=== PATIENT | male | born 1925 | race Caucasian/White ===

== ENCOUNTER 2016-12-13 07:24 | Observation (INO) | payer MEDICARE ==
[~2016-12-13] VITALS: Ht 170.2 cm; Wt 55.8 kg
[~2016-12-13 07:24] MED LIST: ACET1CAP18 PO; DILT120T PO; DOCU100C PO; DULC10SU3 RECTAL; FINA5TAB2 PO; FLEE10EN RECTAL; FLEEENE3 RECTAL; FURO40TA PO; HALO5P IM; LOPE1LIQ3 PO; LOPE2CAP PO; MAALSUS18 PO; MILKSUS PO; POTA75TA PO; QUET1TAB7 PO; SENN8.6T5 PO; TAMS0.4C4 PO; TRAZ50TA12 PO
[2016-12-13] MEDS ORDERED: METOPROLOL TARTRATE 25 MG TAB PO PRN (08:15)
[2016-12-13] MEDS ORDERED: INSULIN HUMAN REGULAR 1,000 UNITS/10 ML VIAL SQ PRN (08:15)
[2016-12-13] MEDS ORDERED: LACTATED RINGER'S 1000 ML IV SCH (08:15)
[2016-12-13] MEDS ORDERED: AMPICILLIN 1 GM/NS 100 ML IV SCH ×2 (08:15)
[2016-12-13] MEDS ORDERED: SODIUM CHLORID 0.9% 500 ML IV SCH (08:15)
[2016-12-13] MEDS ORDERED: GENTAMICIN INJ 160 MG in SODIUM CHLORIDE 0.9% INJ 100 ML IV SCH (08:15)
[2016-12-13 08:24] VITALS: BP 121/83; PULSE 87; RESP 20; TEMP 97.4; O2SAT 87
[2016-12-13] MEDS ORDERED: ACETAMINOPHEN 1000 MG/100 ML VIAL IV ONE (09:47)
[2016-12-13] MEDS ORDERED: DO NOT ADM ANY ANTICOAGULANT DRUGS XX PRN (10:53)
[2016-12-13] MEDS ORDERED: BELLADONNA ALKALOIDS/OPIUM 60 MG SUPP RECTAL PRN (11:00)
[2016-12-13] MEDS ORDERED: ACETAMINOPHEN 325 MG TAB PO PRN (11:00)
[2016-12-13] MEDS ORDERED: ALUMINUM/MAGNESIUM/SIMETH 30 ML CUP PO PRN (11:00)
[2016-12-13] MEDS ORDERED: HALOPERIDOL LACTATE 5 MG/ML AMP IM PRN (11:00)
[2016-12-13] MEDS: SODIUM CHLOR 0.45% 1000 ML INJ 1,000 ML IV SCH ×2 (11:00→21:33)
--- NOTE | 2016-12-13 11:15 | PD.OP ---
Operative Report Date of Surgery: Dec 13, 2016 Preoperative Diagnosis: BPH with obstruction: AUR Postoperative Diagnosis: same Procedure: Cystoscopy with transurethral resection of the prostate Anesthesia: Gen. LMA Surgeon: Romero Moncada Planning Feeder(s): None Operation and Findings: 89-year-old male with history of urinary retention secondary to BPH. Patient has been unable to void for the last few months and has had a Claros catheter in place. Cystoscopy performed in the office demonstrating large coapting lobes causing obstruction. Given the patient's age, it was noted that even after TURP he may have some difficulty with urination and may need to perform clean intermittent catheterization. This was discussed and the family and they're willing to proceed. Patient is brought to the operative and identified by myself as Blane Stacy. His placement dorsal lithotomy position, prepped and draped in usual sterile fashion, received preprocedure antibiotics, and general LMA anesthesia was administered. 24 sheath resectoscope was then inserted into the bladder. Jon cystoscopy once in the bladder did not show any abnormalities other than catheter cystitis. Some trabeculations were identified. A large median lobe was again identified. Using the loop resectoscope, starting at the 6 o'clock position that TUR of the prostate was then performed. The loop was then used in the counterclockwise manner starting at the 6 o'clock position in the left side was then resected. This was again repeated on the right side going from the 6 o'clock position to the 12 o'clock position in a clockwise direction. Care was taken to identify the veromontana. Once the prosthetic lobes were resected as well as the median lobe, the rollerball was then used to provide hemostasis. Once that was completed the chips were evacuated with the iliac evacuator. Hemostasis was again checked for and was present. 22 Azeri three-way Claros catheter was inserted over a catheter guide and the patient was started on CBI. He was awoken and transferred recovery room in stable condition. Romero Moncada DO Dec 13, 2016 11:15
--- NOTE | 2016-12-13 11:21 | EKG ---
Date Performed: 12/13/2016 Time Performed: 08:10:16 PTAGE: 89 years EKG: ATRIAL FIBRILLATION INDETERMINATE AXIS INCOMPLETE RIGHT BUNDLE BRANCH BLOCK MINIMAL VOLTAGE CRITERIA FOR LVH, CONSIDER NORMAL VARIANT MINIMAL ST DEPRESSION ABNORMAL RHYTHM ECG PREVIOUS TRACING : 09/07/2013 12.22 DOCTOR: Zac Castaneda Interpretating Date/Time 12/13/2016 11:19:19
[2016-12-13] MEDS ORDERED: PHENYLEPH/NS 1000 MCG/10 ML SYR IV ONE (12:00)
[2016-12-13] MEDS ORDERED: PILL SPLITTER OTHER PRN (12:00)
[2016-12-13] MEDS ORDERED: ONDANSETRON HCL 4 MG/2 ML VIAL IV PUSH ONE (12:00)
[2016-12-13] MEDS ORDERED: PROPOFOL 200 MG/20 ML AMP IV ONE (12:00)
[2016-12-13] MEDS ORDERED: NORMOSOL R INJ 1,000 ML IV ONE (12:00)
[2016-12-13] MEDS ORDERED: DOCUSATE SODIUM 50 MG/SENNA 8.6 MG TAB PO ONE (13:00)
[2016-12-13 13:51] LABS: HEMATOCRIT 39.5 % (39.0-51.0); MEAN CELL VOLUME 86.8 FL (80.0-100.0); MEAN CORPUSCULAR HEMOGLOBIN 28.7 PG (27.0-34.0); MEAN CORPUSCULAR HGB CONC 33.1 % (32.0-36.0); PLATELET COUNT 156 TH/MM3 (150-450); RED BLOOD COUNT 4.55 MIL/MM3 (4.50-5.90); RED CELL DISTRIBUTION WIDTH 14.4 % (11.6-17.2); REVIEW FLAG FINAL; WHITE BLOOD COUNT 4.9 TH/MM3 (4.0-11.0)
[2016-12-13 14:10] LABS: BICARBONATE 29.5 MEQ/L (21.0-32.0); POTASSIUM 3.9 MEQ/L (3.5-5.1)
[2016-12-13] MEDS: DILTIAZEM HCL 60 MG TAB PO SCH (15:10)
[2016-12-13] MEDS: FUROSEMIDE 40 MG TAB PO SCH (18:00)
[2016-12-13] MEDS ORDERED: traZODone HCL 50 MG TAB PO SCH (21:00)
[2016-12-13 21:40] VITALS: BP 104/70; PULSE 72; RESP 12; O2SAT 95
[2016-12-14 03:26] VITALS: BP 92/63; PULSE 63; RESP 12; O2SAT 95
[2016-12-14] MEDS: SODIUM CHLOR 0.45% 1000 ML INJ 1,000 ML IV SCH (06:01)
[2016-12-14 07:00] VITALS: BP 115/58; PULSE 58; RESP 16; TEMP 96.1
[2016-12-14] MEDS: FUROSEMIDE 40 MG TAB PO SCH (08:47)
[2016-12-14] MEDS: DILTIAZEM HCL 60 MG TAB PO SCH (08:49)
[2016-12-14] MEDS ORDERED: DILTIAZEM HCL 60 MG TAB PO SCH (09:00)
[2016-12-14] MEDS ORDERED: QUEtiapine FUMARATE 25 MG TAB PO SCH (09:00)
[2016-12-14] MEDS ORDERED: POTASSIUM CHLORIDE 10 MEQ CONTROLLED RELEASE TAB PO SCH (09:00)
--- NOTE | 2016-12-14 09:05 | HHI.PR ---
Subjective Remarks Pt feels well. No complaints; urine clear Objective Vital Signs Vital Signs Date Time Temp Pulse Resp B/P Pulse Ox O2 Delivery O2 Flow Rate FiO2 12/14/16 03:26 63 12 92/63 95 12/13/16 21:40 72 12 104/70 95 12/13/16 17:55 97.5 88 15 107/65 95 Room Air 12/13/16 17:00 93 15 108/67 94 Room Air 12/13/16 16:00 100 15 115/66 98 Nasal Cannula 3 12/13/16 15:00 109 15 121/63 96 Nasal Cannula 3 12/13/16 14:00 105 15 117/69 95 Nasal Cannula 3 12/13/16 13:15 97.5 106 15 114/65 99 Nasal Cannula 4 12/13/16 13:00 102 12 123/87 97 Nasal Cannula 4 12/13/16 12:30 105 12 145/89 97 Nasal Cannula 4 12/13/16 12:00 109 12 126/79 97 Nasal Cannula 4 12/13/16 11:45 111 12 130/88 99 Nasal Cannula 4 12/13/16 11:30 101 12 121/80 99 Nasal Cannula 4 12/13/16 11:15 84 12 117/89 99 Nasal Cannula 4 12/13/16 11:00 75 12 93/54 99 Nasal Cannula 4 12/13/16 10:53 97.3 81 12 92/58 99 Nasal Cannula 4 I/O 12/13/16 12/13/16 12/13/16 12/14/16 12/14/16 12/14/16 07:00 15:00 23:00 07:00 15:00 23:00 Intake Total 1040 ml 2130 ml 240 ml Output Total 5 ml 850 ml Balance 1035 ml 2130 ml -610 ml Intake Oral 240 ml 600 ml 240 ml IV Total 1530 ml Other 800 ml Output Urine Total 850 ml Estimated Blood Loss 5 ml # Voids 0 # Bowel Movements 0 0 Result Diagram: 12/13/16 1335 12/13/16 1335 Objective Remarks Abd:soft,nt,nd Claros: urine clear Assessment and Plan Assessment and Plan Stable s/p TURP D/C home Romero Moncada DO Dec 14, 2016 09:05
--- NOTE | 2016-12-16 21:55 | MD ---
cc: LARISSA DING ADMISSION DATE: 12/13/2016 DISCHARGE DATE: 12/14/2016 HISTORY Mr. Stacy is a pleasant 89-year-old male with history of urinary retention for the last few months who had an indwelling Claros catheter. He underwent cystoscopy in the office demonstrating large coapting lobes with trabeculations within the bladder. Decision was made to undergo a transurethral resection of the prostate. This was done on 12/13/2016. There no complications. He was kept overnight for observation. He was tolerating his regular diet, ambulating without difficulty. He remained afebrile and his vital signs were stable, and his urine was clear on postoperative day #1. He was then discharged. At the time of discharge he was given instructions concerning diet, exercise and medications. He is scheduled to follow up on Saturday for a void trial in the office. Larissa GOMEZ/KK /9:13 AM /9:54 PM
[2016-12-17] MEDS ORDERED: LORA-373 PO (11:47)
[2016-12-17] MEDS ORDERED: POTA10TA15 PO (11:47)
[2016-12-31] MEDS ORDERED: PLAV75TA29 PO (11:23)
[2016-12-31] MEDS ORDERED: ALBU.5I NEB (11:23)
[2016-12-31] MEDS ORDERED: MUCI600T PO (11:23)
== END 2016-12-14 11:20 | disposition home or self-care (01) ==
LOC: HSDC 07:24 → HSDI 11:08 → N07B 18:09
PROVIDERS: ADMIT Urology; ATTEND Urology
DX: N40.1 Benign prostatic hyperplasia with lower urinary tract symptoms (principal); N40.0 Benign prostatic hyperplasia without lower urinary tract symptoms; R33.8 Other retention of urine; N30.80 Other cystitis without hematuria; R94.31 Abnormal electrocardiogram [ECG] [EKG]
CPT/HCPCS: 00914; 52601; 80048; 85027; 88305; 93005; 94150; G0378; J0131; J0290; J0690; J1580; J2370; J2405

== ENCOUNTER 2017-01-06 21:53 | Emergency (ER) | payer MEDICARE ==
[~2017-01-06] VITALS: Ht 165.1 cm; Wt 55.0 kg
[~2017-01-06 21:53] MED LIST changes: +ALBU.5I NEB; -DULC10SU3 RECTAL; -HALO5P IM; +LORA-373 PO; +MUCI600T PO; +PLAV75TA29 PO; +POTA10TA15 PO; -POTA75TA PO
[2017-01-06 22:00] VITALS: BP 143/77; PULSE 96; RESP 16; TEMP 98.2; O2SAT 96
[2017-01-06] MEDS ORDERED: TETANUS/DIPHTHERIA TOXOID ADULT 0.5 ML VIAL IM ONE (22:00)
--- NOTE | 2017-01-06 22:04 | PD ---
HPI Chief Complaint: fall Time Seen by Provider: 22:00 Travel History International Travel<30 days: No Contact w/Intl Traveler<30days: No Traveled to known affect area: No History of Present Illness HPI This is an 89-year-old male with history of vascular dementia, atrial fibrillation rate controlled per his paperwork, BPH, CHF presents after an unwitnessed fall from his custodial. According to EMS the patient was seen by the SIGHTSEEING GUIDE at the custodial on the ground. He appeared to be at his baseline mental status but he appears to have an abrasion to the back of his head because of the unwitnessed fall he was encouraged to come here for further evaluation. At this time he is complaining of pain "all over" and is unable to localize any further. He is coughing quite a bit during examination. History is limited by dementia. He appears to be on Plavix according to his paperwork. PFSH Past Medical History Arthritis: No Atrial Fibrillation: Yes Anxiety: Yes Heart Rhythm Problems: Yes Cancer: No Cardiovascular Problems: Yes (valve dysfunction- [facility] TREATING MEDICALLY) High Cholesterol: Yes Chest Pain: No Congestive Heart Failure: Yes Coronary Artery Disease: Yes Dementia: Yes Diminished Hearing: Yes Endocrine: No Gastrointestinal Disorders: No Genitourinary: Yes (BPH) Hypertension: Yes Immune Disorder: No Kidney Stones: No Musculoskeletal: Yes Neurologic: No Psychiatric: No Reproductive: No Respiratory: Yes Immunizations Current: Yes Renal Failure: No Sleep Apnea: No Past Surgical History Abdominal Surgery: No Cardiac Surgery: No Ear Surgery: No Endocrine Surgery: No Eye Surgery: No Genitourinary Surgery: No Gynecologic Surgery: No Neurologic Surgery: No Oral Surgery: No Thoracic Surgery: No Other Surgery: Yes Social History Alcohol Use: No Tobacco Use: No Allergies-Medications (Allergen,Severity, Reaction): Coded Allergies: No Known Allergies (Unverified , 01/06/17) Reported Meds & Prescriptions Reported Meds & Active Scripts Active Macrobid (Nitrofurantoin Monoh/Nitrofur Macro) 100 Mg Cap 100 Mg PO BID 7 Days Reported Albuterol Neb (Albuterol Sulfate) 2.5 Mg/0.5 Ml Neb 2.5 Mg NEB Q6HR NEB Note: The Albuterol Sulfate Inhalation Solution is concentrated and must be diluted. Read complete instructions carefully before using. Mucinex ER 12 HR (Guaifenesin) 600 Mg Trista 600 Mg PO BID Plavix (Clopidogrel Bisulfate) 75 Mg Tab 75 Mg PO DAILY Lorazepam 0.5 Mg Tab 0.5 Mg PO Q8H PRN Potassium Chloride Microencaps 10 Meq Tab 10 Meq PO DAILY Trazodone (Trazodone HCl) 50 Mg Tab 25 Mg PO HS Tamsulosin (Tamsulosin HCl) 0.4 Mg Cap 0.4 Mg PO HS Senna (Sennosides) 8.6 Mg Tab 8.6 Mg PO HS Quetiapine (Quetiapine Fumarate) 25 Mg Tab 25 Mg PO HS Quetiapine (Quetiapine Fumarate) 25 Mg Tab 12.5 Mg PO DAILY Furosemide 40 Mg Tab 40 Mg PO BID Finasteride 5 Mg Tab 5 Mg PO DAILY Do not crush. Docusate Sodium 100 Mg Cap 100 Mg PO BID Diltiazem (Diltiazem HCl) 120 Mg Tab 120 Mg PO DAILY Tylenol (Acetaminophen) 325 Mg Cap 650 Mg PO QID PRN Loperamide Liq (Loperamide HCl) 1 Mg/5 Ml Liq 4 Mg PO DIRECTED PRN 2 mg (10 mL) after each loose stool. Not to exceed 16 mg (80 mL) per day. Fleet Enema Rectal (Sodium Phosphates Rectal) 7-19 Gm/118 Ml Enem 118 Ml RECTAL DAILY PRN Fleet Bisacodyl Enema (Bisacodyl) 10 Mg/37 Ml Enem 37 Ml RECTAL DAILY PRN Loperamide (Loperamide HCl) 2 Mg Cap 2 Mg PO DIRECTED PRN One capsule after each loose stool. Not to exceed 8 capsules per day. Milk of Magnesia Liq (Magnesium Hydroxide) 400 Mg/5 Ml Susp 30 Ml PO Q6H PRN Maalox Advanced Maximum Strength Liq (Ijjcqinh-Rftkskucr-Iymtssmblaa Liq) 400- 400-40 Mg/5 Ml Susp 30 Ml PO QID Take between meals or as directed. Shake well. Maximum 60 ml/24 hrs. Review of Systems ROS Limitations: Poor Historian Except as stated in HPI: all other systems reviewed are Neg Physical Exam Exam Limitations: Poor Historian Narrative GENERAL: This is a elderly male who is in no acute distress. He is coughing during the examination. SKIN: Warm and dry. Abrasion/contusion to the occipital scalp. HEAD: Atraumatic. Normocephalic. EYES: Pupils equal and round. No scleral icterus. No injection or drainage. ENT: No nasal bleeding or discharge. Mucous membranes pink and moist. NECK: Trachea midline. No JVD. CARDIOVASCULAR: Regular rate and rhythm. No murmur appreciated. RESPIRATORY: No accessory muscle use. There is some wheezing bilaterally. GASTROINTESTINAL: Abdomen soft, non-tender, nondistended. Hepatic and splenic margins not palpable. MUSCULOSKELETAL: No obvious deformities. The patient seems to have some discomfort with palpation along the back. Initially he seemed to have some discomfort with palpation of the right forearm but then on reevaluation he did not appear to have any pain on examination of the right forearm. He has no obvious range of motion limitation in the shoulders, elbows, wrists, hands, hips , knees, ankles, toes bilaterally. He has no bony tenderness to palpation to the pelvis, hips, thighs, knees, lower legs, ankles or feet. NEUROLOGICAL: Awake and alert. No obvious cranial nerve deficits. Motor grossly within normal limits. Normal speech. Data Data Last Documented VS Vital Signs Date Time Temp Pulse Resp B/P Pulse Ox O2 Delivery O2 Flow Rate FiO2 01/07/17 02:34 96 20 123/83 97 Room Air 01/06/17 23:53 98.1 Orders Chest, Single Ap (01/06/17 21:59) Pelvis, Ap Only (Routine) (01/06/17 21:59) Spine, Lumbar - Ltd (Ap & Lat) (01/06/17 21:59) Spine, Thoracic-Ap/Lat/Sw(3vw) (01/06/17 21:59) Ct Brain W/O Iv Contrast(Rout) (01/06/17 21:59) Ct Cerv Spine W/O Contrast (01/06/17 21:59) Forearm (2vws) (01/06/17 ) Complete Blood Count With Diff (01/06/17 21:59) Basic Metabolic Panel (Bmp) (01/06/17 21:59) Act Partial Throm Time (Ptt) (01/06/17 21:59) Prothrombin Time / Inr (Pt) (01/06/17 21:59) Electrocardiogram (01/06/17 21:59) Ckmb (Isoenzyme) Profile (01/06/17 21:59) Troponin I (01/06/17 21:59) Tetanus/Diphtheria Tox Adult (Tetanus/Di (01/06/17 22:00) Albuterol-Ipratropium Neb (Duoneb Neb) (01/06/17 22:15) Urinalysis - C+S If Indicated (01/06/17 22:01) B-Type Natriuretic Peptide (01/06/17 22:05) Diltiazem (Cardizem) (01/06/17 22:15) Urine Culture (01/06/17 22:10) CKMB (01/06/17 22:10) CKMB% (01/06/17 22:10) Ceftriaxone Inj (Rocephin Inj) (01/07/17 00:15) Labs Laboratory Tests Test 01/06/17 22:10 White Blood Count 11.1 TH/MM3 Red Blood Count 4.35 MIL/MM3 Hemoglobin 12.1 GM/DL Hematocrit 36.8 % Mean Corpuscular Volume 84.6 FL Mean Corpuscular Hemoglobin 27.8 PG Mean Corpuscular Hemoglobin 32.9 % Concent Red Cell Distribution Width 14.6 % Platelet Count 158 TH/MM3 Mean Platelet Volume 8.4 FL Neutrophils (%) (Auto) 87.0 % Lymphocytes (%) (Auto) 5.6 % Monocytes (%) (Auto) 5.5 % Eosinophils (%) (Auto) 1.2 % Basophils (%) (Auto) 0.7 % Neutrophils # (Auto) 9.6 TH/MM3 Lymphocytes # (Auto) 0.6 TH/MM3 Monocytes # (Auto) 0.6 TH/MM3 Eosinophils # (Auto) 0.1 TH/MM3 Basophils # (Auto) 0.1 TH/MM3 CBC Comment DIFF FINAL Differential Comment Prothrombin Time 13.6 SEC Prothromb Time International 1.2 RATIO Ratio Activated Partial 32.2 SEC Thromboplast Time Urine Color YELLOW Urine Turbidity HAZY Urine pH 6.0 Urine Specific [place] 1.023 Urine Protein 30 mg/dL Urine Glucose (UA) NEG mg/dL Urine Ketones NEG mg/dL Urine Occult Blood LARGE Urine Nitrite NEG Urine Bilirubin NEG Urine Urobilinogen 2.0 MG/DL Urine Leukocyte Esterase LARGE Urine RBC /hpf Urine WBC /hpf Urine WBC Clumps MANY Urine Hyaline Casts 3 /lpf Urine Mucus FEW /lpf Microscopic Urinalysis Comment CATH-CULTURE IND Sodium Level 143 MEQ/L Potassium Level 4.1 MEQ/L Chloride Level 106 MEQ/L Carbon Dioxide Level 28.4 MEQ/L Anion Gap 9 MEQ/L Blood Urea Nitrogen 30 MG/DL Creatinine 1.00 MG/DL Estimat Glomerular Filtration 70 ML/MIN Rate Random Glucose 100 MG/DL Calcium Level 8.3 MG/DL Total Creatine Kinase 120 U/L Creatine Kinase MB 3.5 NG/ML Troponin I LESS THAN 0.02 NG/ML B-Type Natriuretic Peptide 259 PG/ML MDM Medical Decision Making Medical Screen Exam Complete: Yes Emergency Medical Condition: Yes Medical Record Reviewed: Yes Differential Diagnosis Mechanical fall with closed head injury, scalp abrasion, intracranial hemorrhage , arrhythmia, electrolyte abnormality, syncope, acute coronary syndrome Narrative Course 89-year-old male with dementia presents after an unwitnessed fall at a custodial. He has on examination an obvious abrasion/contusion to the occipital scalp. No other obvious injury. He is complaining of pain all over. He has a cough during examination as well as some wheezing. He is also tachycardic, atrial fibrillation, history of the same. He'll be given a dose of diltiazem. Tetanus status updated. Plan is for CT of the brain, cervical spine as well as chest x-ray, thoracic and lumbar spine x-ray, right forearm x-ray. Basic lab work, EKG will have been ordered. At the end of my shift the patient was signed out to Dr. Jones. Scripts Nitrofurantoin Monohydrate Macrocrystals (Macrobid)100 Mg Rff109 Mg PO BID 7 Days Prov:Rosio Jones MD 01/07/17 David Katz Jan 06, 2017 22:04
[2017-01-06] MEDS ORDERED: RESP: ALBUTEROL 2.5 MG/IPRATROPIUM 0.5 MG NEB (SCH) INH ONE (22:15)
[2017-01-06] MEDS ORDERED: DILTIAZEM HCL 30 MG TAB PO ONE (22:15)
[2017-01-06 22:24] LABS: AUTOMATED NEUTROPHIL # 9.6 TH/MM3 (1.8-7.7); BASOPHIL # 0.1 TH/MM3 (0-0.2); BASOPHIL % 0.7 % (0.0-2.0); EOSINOPHIL # 0.1 TH/MM3 (0-0.4); EOSINOPHIL % 1.2 % (0.0-4.0); HEMATOCRIT 36.8 % (39.0-51.0); HEMO FLAGS DIFF FINAL; LYMPH % 5.6 % (9.0-44.0); LYMPHOCYTE # 0.6 TH/MM3 (1.0-4.8); MEAN CELL VOLUME 84.6 FL (80.0-100.0); MEAN CORPUSCULAR HEMOGLOBIN 27.8 PG (27.0-34.0); MEAN CORPUSCULAR HGB CONC 32.9 % (32.0-36.0); MONO % 5.5 % (0.0-8.0); PLATELET COUNT 158 TH/MM3 (150-450); RED BLOOD COUNT 4.35 MIL/MM3 (4.50-5.90); RED CELL DISTRIBUTION WIDTH 14.6 % (11.6-17.2); WHITE BLOOD COUNT 11.1 TH/MM3 (4.0-11.0)
[2017-01-06 22:33] LABS: APTT (PATIENT) 32.2 SEC (24.3-30.1); INTERNATIONAL NORMALIZED RATIO 1.2 RATIO; PROTHROMBIN TIME - PATIENT 13.6 SEC (9.8-11.6)
[2017-01-06 22:46] LABS: BLOOD, URINE LARGE (NEG); GLUCOSE,URINE NEG (NEG); HYALINE CAST, URINE 3 /lpf (RARE); KETONE, URINE NEG (NEG); MUCUS URINE FEW /lpf (OCC); NITRITE,URINE NEG (NEG); URINE COLOR YELLOW (YELLW/STRAW)
[2017-01-06 22:48] LABS: COMMENT (UR) CATH-CULTURE IND; CULTURE IF INDICATED CATH CULTURE IND
[2017-01-06 22:57] LABS: ANION GAP 9 MEQ/L (5-15); BICARBONATE 28.4 MEQ/L (21.0-32.0); BLOOD UREA NITROGEN 30 MG/DL (7-18); CHLORIDE 106 MEQ/L (98-107); GLOMERULAR FILTRATION RATE 70 ML/MIN (>89); POTASSIUM 4.1 MEQ/L (3.5-5.1); SODIUM (NA) 143 MEQ/L (136-145)
[2017-01-06 23:02] LABS: CREATINE KINASE 120 U/L (39-308)
[2017-01-06 23:14] LABS: CKMB 3.5 NG/ML (0.5-3.6)
--- NOTE | 2017-01-06 23:42 | RADRPT ---
EXAM DATE/TIME: 01/06/2017 23:04 [facility] COMPARISON: CT BRAIN W/O CONTRAST, July 10, 2013, 20:15. INDICATIONS : Fall, abrasion to posterior head. RADIATION DOSE: 34.13 CTDIvol (mGy) MEDICAL HISTORY : Hypertension. Dementia. Congestive heart failure.Skin cancer. Coronary artery disease. Benign prostat ic hyperplasia SURGICAL HISTORY : Neck surgery. ENCOUNTER: Initial ACUITY: 1 day PAIN SCALE: 3/10 LOCATION: cranial TECHNIQUE: Multiple contiguous axial images were obtained of the head. Using automated exposure control and adj ustment of the mA and/or kV according to patient size, radiation dose was kept as low as reasonably a chievable to obtain optimal diagnostic quality images. FINDINGS: CEREBRUM: Diffuse prominence of ventricles, sulci, and cisterns indicating age-appropriate atrophy. No evidence of midline shift, mass lesion, hemorrhage or acute infarction. No extra-axial fluid collections are seen. POSTERIOR FOSSA: The cerebellum and brainstem are intact. The 4th ventricle is midline. The cerebellopontine angle i s unremarkable. EXTRACRANIAL: Severe partial opacification of the right maxillary sinus and bilateral ethmoid sinuses with large ai r-fluid level in the right maxillary sinus. Small air-fluid level in the left maxillary sinus. SKULL: The calvaria is intact. No evidence of skull fracture. CONCLUSION: 1. No acute intracranial findings. 2. Severe ethmoid and maxillary sinus disease with air-fluid levels in the maxillary sinuses. 3. Diffuse atrophy again seen. Nicholas Tran MD on January 06, 2017 at 23:36 Board Certified Radiologist. This report was verified electronically.
[2017-01-06 23:50] VITALS: BP 121/75; PULSE 108; RESP 15; O2SAT 97
--- NOTE | 2017-01-06 23:50 | RADRPT ---
EXAM DATE/TIME: 01/06/2017 23:04 [facility] COMPARISON: No previous studies available for comparison. INDICATIONS : Trauma, fall. RADIATION DOSE: 20.70 CTDIvol (mGy) MEDICAL HISTORY : Congestive hearrt failure. Hypertension. Dementia.Skin cancer. Coronary artery disease. Benign prosta tic hyperplasia. SURGICAL HISTORY : Neck surgery. ENCOUNTER: Initial ACUITY: 1 day PAIN SCALE: 3/10 LOCATION: neck TECHNIQUE: Volumetric scanning of the cervical spine was performed. Multiplanar reconstructions in the sagittal, coronal and oblique axial planes were performed. Using automated exposure control and adjustment o f the mA and/or kV according to patient size, radiation dose was kept as low as reasonably achievable to obtain optimal diagnostic quality images. FINDINGS: VERTEBRAE: Normal vertebral body height. ALIGNMENT: 2 mm anterolisthesis C4 on C5. 3 mm anterolisthesis C7 on T1. C2-C3: Bilateral facet arthrosis. No evidence of focal disc protrusion. Central canal normal diameter. Neura l foraminal diameters within normal limits. C3-C4: Bony fusion of the vertebral bodies. Bilateral facet arthrosis. No evidence of focal disc protrusion. Central canal normal diameter. Neural foraminal diameters within normal limits. C4-C5: Severe right-sided facet arthrosis. Broad based disc osteophyte complex. Moderate right neural forami nal narrowing. Central canal diameter within normal limits. C5-C6: Broad-based disc osteophyte complex. No evidence of focal disc protrusion. Central canal normal diame ter. Neural foraminal diameters within normal limits. C6-C7: Broad-based disc osteophyte complex. No evidence of focal disc protrusion. Central canal normal diame ter. Neural foraminal diameters within normal limits. C7-T1: Bilateral facet arthrosis. No evidence of focal disc protrusion. Central canal normal diameter. Neura l foraminal diameters within normal limits. CONCLUSION: No evidence of fracture. Multilevel degenerative findings. Nicholas Tran MD on January 06, 2017 at 23:41 Board Certified Radiologist. This report was verified electronically.
[2017-01-06 23:53] VITALS: BP 120/75; PULSE 102; RESP 16; TEMP 98.1; O2SAT 98
--- NOTE | 2017-01-07 00:01 | RADRPT ---
EXAM DATE/TIME: 01/06/2017 23:14 [facility] COMPARISON: CHEST SINGLE AP, September 07, 2013, 12:25. INDICATIONS : Trauma, fall. MEDICAL HISTORY : Hypertension. Congestive heart failure. Coronary artery disease. SURGICAL HISTORY : None. ENCOUNTER: Initial ACUITY: 1 day PAIN SCORE: 0/10 LOCATION: Bilateral chest FINDINGS: The lungs are clear. Severe cardiac silhouette enlargement is again seen and unchanged from prior [place] 2012. No evidence of pleural effusion or pneumothorax. CONCLUSION: Chronic cardiac silhouette enlargement. No acute cardiopulmonary disease identifi ed. Nicholas Tran MD on January 06, 2017 at 23:59 Board Certified Radiologist. This report was verified electronically.
--- NOTE | 2017-01-07 00:04 | RADRPT ---
EXAM DATE/TIME: 01/06/2017 23:15 [facility] COMPARISON: CHEST SINGLE AP, September 07, 2013, 12:25. INDICATIONS : Trauma, fall. MEDICAL HISTORY : None. SURGICAL HISTORY : None. ENCOUNTER: Initial ACUITY: 1 day PAIN SCORE: 2/10 LOCATION: thoracic spine. FINDINGS: 3 views of the thoracic spine. S-shaped thoracolumbar scoliosis similar to the prior chest x-ray at 2 013. Small endplate osteophytes at multiple levels of the thoracic spine. No evidence of fracture in the thoracic spine. Fracture deformities of L1 and L2 are new when compared to the prior chest x-ray of 2012. CONCLUSION: Superior endplate deformities indicating fractures of L1 and L2, age indeterminate but new when kevin red to the prior chest x-ray of 2012. No evidence of fracture in the thoracic spine. Moderate right c onvex thoracic scoliosis. Nicholas Tran MD on January 07, 2017 at 0:00 Board Certified Radiologist. This report was verified electronically.
--- NOTE | 2017-01-07 00:06 | RADRPT ---
EXAM DATE/TIME: 01/06/2017 23:17 [facility] COMPARISON: CHEST SINGLE AP, September 07, 2013, 12:25. INDICATIONS : Trauma, fall. MEDICAL HISTORY : None. SURGICAL HISTORY : None. ENCOUNTER: Initial ACUITY: 1 day PAIN SCORE: 4/10 LOCATION: lumbar spine. FINDINGS: 3 views of the lumbar spine. Superior endplate concavity of the L1 and L2 vertebral bodies indicating age indeterminate compression fracture deformities. Approximately 30% decreased height at L1 and 20% decreased height at L2. No evidence of bony retropulsion. Findings are new when compared to the prio r chest x-ray of August 2013. Grade 1 anterolisthesis L3 on L4. Severe intervertebral disc narrowin g at L3-4, L4-5, and L5-S1. Facet arthrosis at L3-4, L4-5, and L5-S1. Diffuse aortic calcification. CONCLUSION: Age-indeterminate L1 and L2 vertebral body compression fractures. No evidence of bony retropulsion. M ultilevel degenerative findings. Nicholas Tran MD on January 07, 2017 at 0:02 Board Certified Radiologist. This report was verified electronically.
--- NOTE | 2017-01-07 00:09 | RADRPT ---
EXAM DATE/TIME: 01/06/2017 23:18 [facility] COMPARISON: CT ABDOMEN W/O CONTRAST, July 10, 2013, 10:46. INDICATIONS : Trauma, fall. MEDICAL HISTORY : None. SURGICAL HISTORY : None. ENCOUNTER: Initial ACUITY: 1 day PAIN SCORE: 8/10 LOCATION: Bilateral pelvis FINDINGS: Single AP view of the pelvis. Diffuse bone demineralization. No evidence of fracture. Alignment withi n normal limits. Surgical clips in the right inguinal region. No evidence of joint narrowing. There i s smoothly marginated lateral convexity of the lateral head neck junction of the proximal right femur that is grossly unchanged from the chief development officer view of 07/10/2013 CT abdomen. CONCLUSION: No evidence of fracture. Diffuse bony demineralization. Nicholas Tran MD on January 07, 2017 at 0:05 Board Certified Radiologist. This report was verified electronically.
--- NOTE | 2017-01-07 00:12 | RADRPT ---
EXAM DATE/TIME: 01/06/2017 23:26 [facility] COMPARISON: No previous studies available for comparison. INDICATIONS : Trauma, fall. MEDICAL HISTORY : None. SURGICAL HISTORY : None. ENCOUNTER: Initial ACUITY: 1 day PAIN SCORE: 4/10 LOCATION: Right forearm. FINDINGS: 3 views of the right forearm. Bone alignment within normal limits. No evidence of fracture. CONCLUSION: No evidence of fracture. Nicholas Tran MD on January 07, 2017 at 0:08 Board Certified Radiologist. This report was verified electronically.
[2017-01-07] MEDS ORDERED: MACR100C2 PO (00:13)
--- NOTE | 2017-01-07 00:13 | PD ---
Data Data Last Documented VS Vital Signs Date Time Temp Pulse Resp B/P Pulse Ox O2 Delivery O2 Flow Rate FiO2 01/06/17 23:53 98.1 102 16 120/75 98 01/06/17 23:50 Room Air Orders Chest, Single Ap (01/06/17 21:59) Pelvis, Ap Only (Routine) (01/06/17 21:59) Spine, Lumbar - Ltd (Ap & Lat) (01/06/17 21:59) Spine, Thoracic-Ap/Lat/Sw(3vw) (01/06/17 21:59) Ct Brain W/O Iv Contrast(Rout) (01/06/17 21:59) Ct Cerv Spine W/O Contrast (01/06/17 21:59) Forearm (2vws) (01/06/17 ) Complete Blood Count With Diff (01/06/17 21:59) Basic Metabolic Panel (Bmp) (01/06/17 21:59) Act Partial Throm Time (Ptt) (01/06/17 21:59) Prothrombin Time / Inr (Pt) (01/06/17 21:59) Electrocardiogram (01/06/17 21:59) Ckmb (Isoenzyme) Profile (01/06/17 21:59) Troponin I (01/06/17 21:59) Tetanus/Diphtheria Tox Adult (Tetanus/Di (01/06/17 22:00) Albuterol-Ipratropium Neb (Duoneb Neb) (01/06/17 22:15) Urinalysis - C+S If Indicated (01/06/17 22:01) B-Type Natriuretic Peptide (01/06/17 22:05) Diltiazem (Cardizem) (01/06/17 22:15) Urine Culture (01/06/17 22:10) CKMB (01/06/17 22:10) CKMB% (01/06/17 22:10) Ceftriaxone Inj (Rocephin Inj) (01/07/17 00:15) Labs Laboratory Tests Test 01/06/17 22:10 White Blood Count 11.1 TH/MM3 Red Blood Count 4.35 MIL/MM3 Hemoglobin 12.1 GM/DL Hematocrit 36.8 % Mean Corpuscular Volume 84.6 FL Mean Corpuscular Hemoglobin 27.8 PG Mean Corpuscular Hemoglobin 32.9 % Concent Red Cell Distribution Width 14.6 % Platelet Count 158 TH/MM3 Mean Platelet Volume 8.4 FL Neutrophils (%) (Auto) 87.0 % Lymphocytes (%) (Auto) 5.6 % Monocytes (%) (Auto) 5.5 % Eosinophils (%) (Auto) 1.2 % Basophils (%) (Auto) 0.7 % Neutrophils # (Auto) 9.6 TH/MM3 Lymphocytes # (Auto) 0.6 TH/MM3 Monocytes # (Auto) 0.6 TH/MM3 Eosinophils # (Auto) 0.1 TH/MM3 Basophils # (Auto) 0.1 TH/MM3 CBC Comment DIFF FINAL Differential Comment Prothrombin Time 13.6 SEC Prothromb Time International 1.2 RATIO Ratio Activated Partial 32.2 SEC Thromboplast Time Urine Color YELLOW Urine Turbidity HAZY Urine pH 6.0 Urine Specific [place] 1.023 Urine Protein 30 mg/dL Urine Glucose (UA) NEG mg/dL Urine Ketones NEG mg/dL Urine Occult Blood LARGE Urine Nitrite NEG Urine Bilirubin NEG Urine Urobilinogen 2.0 MG/DL Urine Leukocyte Esterase LARGE Urine RBC /hpf Urine WBC /hpf Urine WBC Clumps MANY Urine Hyaline Casts 3 /lpf Urine Mucus FEW /lpf Microscopic Urinalysis Comment CATH-CULTURE IND Sodium Level 143 MEQ/L Potassium Level 4.1 MEQ/L Chloride Level 106 MEQ/L Carbon Dioxide Level 28.4 MEQ/L Anion Gap 9 MEQ/L Blood Urea Nitrogen 30 MG/DL Creatinine 1.00 MG/DL Estimat Glomerular Filtration 70 ML/MIN Rate Random Glucose 100 MG/DL Calcium Level 8.3 MG/DL Total Creatine Kinase 120 U/L Creatine Kinase MB 3.5 NG/ML Troponin I LESS THAN 0.02 NG/ML B-Type Natriuretic Peptide 259 PG/ML MDM Supervised Visit with ALLAN: Yes Narrative Course The history, exam, and medical decision-making in the associated midlevel provider note were completed with my assistance. I reviewed and agree with the findings presented. I attest that I had a [id number] encounter with the patient on the same day, and personally performed and documented my assessment and findings in the medical record. *My assessment and Findings: This is an 89-year-old male who presents to the emergency department having had an unwitnessed fall. He is confused at baseline. He was placed on a monitor and an IV was established. He has a mild leukocytosis with 87% neutrophils. BNP was indeterminate. Urinalysis demonstrates a urinary tract infection. CTs and x-rays were performed given the patient is a poor historian. Patient does have evidence of an L1 and L2 compression fracture with 30% and 20% height loss which may be chronic or may be acute. Patient was given a dose of IV ceftriaxone. I think he's safe for discharge to his alf with outpatient follow-up with neurosurgery. Given the mild height loss of both compression fractures I don't think a TLSO brace is warranted at this time. Diagnosis Primary Impression: Urinary tract infection Qualified Code: N30.00 - Acute cystitis without hematuria Additional Impressions: Compression fracture of L1 lumbar vertebra Qualified Code: S32.010A - Compression fracture of L1 lumbar vertebra, closed , initial encounter Compression fracture of L2 Qualified Code: S32.020A - Compression fracture of L2, closed, initial encounter Patient Instructions: General Instructions Additional Instruction: If you develop numbness, weakness, severe pain or difficulty walking return to the emergency room. Follow-up with a neurosurgeon as an outpatient regarding your compression fractures of your lumbar spine. Complete your course of antibiotics. Med/Other Pt SpecificInfo: Prescription(s) given Scripts Nitrofurantoin Monohydrate Macrocrystals (Macrobid)100 Mg [id number] Mg PO BID 7 Days Prov:Rosio Jones MD 01/07/17 Disposition: 01 DISCHARGE HOME Condition: Stable Rosio Jones MD Jan 07, 2017 00:13
[2017-01-07] MEDS ORDERED: cefTRIAXone INJ 1,000 MG in SODIUM CHLORIDE 0.9% INJ 100 ML IV ONE (00:15)
[2017-01-07 02:34] VITALS: BP 123/83; PULSE 96; RESP 20; O2SAT 97
--- NOTE | 2017-01-07 15:26 | EKG ---
Date Performed: 01/07/2017 Time Performed: 00:03:42 PTAGE: 89 years EKG: ATRIAL FIBRILLATION WITH RAPID VENTRICULAR RESPONSE WITH ABERRANT CONDUCTION OR VENTRICULAR PREMATURE COMPLEXES MINIMAL VOLTAGE CRITERIA FOR LVH, CONSIDER NORMAL VARIANT MODERATE ST DEPRESSION Compared to the previous tracing there has been an increase in the ventricular response to the atria l fibrillation. There has been some variation in the diffuse nonspecific ST-T wave changes and the PV Cs are new. Clinical correlation advised. ABNORMAL ECG PREVIOUS TRACING : 12/13/2016 08.10 DOCTOR: Mariam Ponce Interpretating Date/Time 01/07/2017 15:24:23
== END 2017-01-07 09:39 | disposition home or self-care (01) ==
LOC: NEPC 21:53 → NEPA 01-07 09:39
DX: N30.00 Acute cystitis without hematuria (principal); S32.010A Wedge compression fracture of first lumbar vertebra, initial encounter for closed fracture; S32.020A Wedge compression fracture of second lumbar vertebra, initial encounter for closed fracture; R05 Cough; R06.2 Wheezing; F03.90 Unspecified dementia, unspecified severity, without behavioral disturbance, psychotic disturbance, mood disturbance, and anxiety; I10 Essential (primary) hypertension; E78.00 Pure hypercholesterolemia, unspecified; R94.31 Abnormal electrocardiogram [ECG] [EKG]; W19.XXXA Unspecified fall, initial encounter; Y92.129 Unspecified place in nursing home as the place of occurrence of the external cause; Z23 Encounter for immunization; Z86.79 Personal history of other diseases of the circulatory system; Z87.39 Personal history of other diseases of the musculoskeletal system and connective tissue; Z87.438 Personal history of other diseases of male genital organs; Z86.59 Personal history of other mental and behavioral disorders; Z87.09 Personal history of other diseases of the respiratory system
CPT/HCPCS: 70450; 71010; 72072; 72100; 72125; 72170; 73090; 80048; 81001; 82550; 82552; 83880; 84484; 85025; 85610; 85730; 87086; 90471; 90714; 93005; 94664; 96365; 99284; J0696

== ENCOUNTER 2017-01-11 04:16 | Inpatient (IN) | payer MEDICARE ==
[2017-01-11] VITALS (8 sets, daily range): BP systolic 113–139; BP diastolic 57–105; PULSE 107–138; RESP 18–24; TEMP 97.6–99.4; O2SAT 94–100
[~2017-01-11] VITALS: Ht 175.3 cm; Wt 61.5 kg
[~2017-01-11 04:16] MED LIST changes: +MACR100C2 PO
--- NOTE | 2017-01-11 04:24 | PD ---
HPI Chief Complaint: altered mental status, delirium Time Seen by Provider: 04:24 Travel History International Travel<30 days: No Contact w/Intl Traveler<30days: No Traveled to known affect area: No History of Present Illness HPI 89-year-old male was brought in from the alf by EMS for altered mental status, delirium, combativeness and oxygen saturation of 85-86% on his 3 L of oxygen via nasal cannula. Patient was seen in this emergency room 3 days ago. He was diagnosed with L1 and L2 compression fracture from a fall and he was discharged home on pain medications. Patient had just received pain medication after which he started getting altered mental status. He does have baseline dementia but usually he is more with it and redirectable. Patient continued to say words and sentences that did not have any context in the current situation when he arrived. His rectal temp was 96.7 initially upon arrival. Blood sugar was 89 as per the paramedics. Patient is also very hard of hearing. He was not answering my questions in spite me loudly asking him. He was complaining of bilateral forearm pain and those were from skin tears while he was being held down and the alf by the staff as he was getting combative. Patient has history of atrial fibrillation and he was in A. fib with RVR. Blood pressure was within normal limits. [facility] Past Medical History Narrative Medical Most of his past medical, surgical, social and family history was reviewed from the nursing note. Arthritis: No Atrial Fibrillation: Yes Anxiety: Yes Heart Rhythm Problems: Yes Cancer: No Cardiovascular Problems: Yes (valve dysfunction- [facility] TREATING MEDICALLY) High Cholesterol: Yes Chest Pain: No Congestive Heart Failure: Yes Coronary Artery Disease: Yes Dementia: Yes Diminished Hearing: Yes Endocrine: No Gastrointestinal Disorders: No Genitourinary: Yes (BPH) Hypertension: Yes Immune Disorder: No Kidney Stones: No Musculoskeletal: Yes Neurologic: No Psychiatric: No Reproductive: No Respiratory: Yes Immunizations Current: Yes Renal Failure: No Sleep Apnea: No Past Surgical History Abdominal Surgery: No Cardiac Surgery: No Ear Surgery: No Endocrine Surgery: No Eye Surgery: No Genitourinary Surgery: No Gynecologic Surgery: No Neurologic Surgery: No Oral Surgery: No Thoracic Surgery: No Social History Alcohol Use: No Tobacco Use: No Substance Use: No (UNABLE TO ASSESS) Allergies-Medications (Allergen,Severity, Reaction): Coded Allergies: No Known Allergies (Unverified , 01/11/17) Comments No known drug allergies. Reported Meds & Prescriptions Reported Meds & Active Scripts Active Macrobid (Nitrofurantoin Monoh/Nitrofur Macro) 100 Mg Cap 100 Mg PO BID 7 Days Reported Seroquel (Quetiapine Fumarate) 25 Mg Tab 25 Mg PO DAILY [place] (Hydrocodone-Acetaminophen) 7.5-325 mg Tab 1 Tab PO Q4H PRN Augmentin (Amoxicillin-Clavulanate) 500-125 mg Tab 500 Mg PO DAILY Albuterol Neb (Albuterol Sulfate) 2.5 Mg/0.5 Ml Neb 2.5 Mg NEB Q6HR NEB Note: The Albuterol Sulfate Inhalation Solution is concentrated and must be diluted. Read complete instructions carefully before using. Mucinex ER 12 HR (Guaifenesin) 600 Mg Trista 600 Mg PO BID Plavix (Clopidogrel Bisulfate) 75 Mg Tab 75 Mg PO DAILY Lorazepam 0.5 Mg Tab 0.5 Mg PO Q8H PRN Potassium Chloride Microencaps 10 Meq Tab 10 Meq PO DAILY Trazodone (Trazodone HCl) 50 Mg Tab 25 Mg PO HS Tamsulosin (Tamsulosin HCl) 0.4 Mg Cap 0.4 Mg PO HS Senna (Sennosides) 8.6 Mg Tab 8.6 Mg PO HS Furosemide 40 Mg Tab 40 Mg PO BID Finasteride 5 Mg Tab 5 Mg PO DAILY Do not crush. Docusate Sodium 100 Mg Cap 100 Mg PO BID Diltiazem (Diltiazem HCl) 120 Mg Tab 120 Mg PO DAILY Tylenol (Acetaminophen) 325 Mg Cap 650 Mg PO QID PRN Loperamide Liq (Loperamide HCl) 1 Mg/5 Ml Liq 4 Mg PO DIRECTED PRN 2 mg (10 mL) after each loose stool. Not to exceed 16 mg (80 mL) per day. Fleet Enema Rectal (Sodium Phosphates Rectal) 7-19 Gm/118 Ml Enem 118 Ml RECTAL DAILY PRN Fleet Bisacodyl Enema (Bisacodyl) 10 Mg/37 Ml Enem 37 Ml RECTAL DAILY PRN Loperamide (Loperamide HCl) 2 Mg Cap 2 Mg PO DIRECTED PRN One capsule after each loose stool. Not to exceed 8 capsules per day. Milk of Magnesia Liq (Magnesium Hydroxide) 400 Mg/5 Ml Susp 30 Ml PO Q6H PRN Maalox Advanced Maximum Strength Liq (Nlwnivfy-Tifpjnkas-Zacedscydtl Liq) 400- 400-40 Mg/5 Ml Susp 30 Ml PO QID Take between meals or as directed. Shake well. Maximum 60 ml/24 hrs. Narrative Medication List of his home medications reviewed from the nursing note. Review of Systems Except as stated in HPI: all other systems reviewed are Neg Physical Exam Narrative GENERAL: Altered mental status, delirious, combative, elderly and frail SKIN: Warm and dry. Multiple skin tears on bilateral forearms that are wrapped with Kerlix. No active bleeding. HEAD: Atraumatic. Normocephalic. EYES: Pupils equal and round. No scleral icterus. No injection or drainage. ENT: No nasal bleeding or discharge. Dry mouth and coated tongue NECK: Trachea midline. No JVD. CARDIOVASCULAR: Regular rate and rhythm. 4 out of 5 systolic murmur appreciated at the aortic area. RESPIRATORY: No accessory muscle use. Clear to auscultation. Breath sounds equal bilaterally. GASTROINTESTINAL: Abdomen soft, non-tender, nondistended. Hepatic and splenic margins not palpable. MUSCULOSKELETAL: No obvious deformities. No clubbing. No cyanosis. No edema. NEUROLOGICAL: Combative, GCS of 12. No obvious cranial nerve deficits. Motor grossly within normal limits. Normal speech. PSYCHIATRIC: Anxious, poor judgment and insight. Data Data Last Documented VS Orders Electrocardiogram (01/11/17 04:25) Ammonia (01/11/17 04:25) Complete Blood Count With Diff (01/11/17 04:25) Comprehensive Metabolic Panel (01/11/17 04:25) Creatine Kinase (Cpk) (01/11/17 04:25) Prothrombin Time / Inr (Pt) (01/11/17 04:25) Troponin I (01/11/17 04:25) Thyroid Stimulating Hormone (01/11/17 04:25) Lactic Acid Sepsis Protocol (01/11/17 04:25) Urinalysis - C+S If Indicated (01/11/17 04:25) Blood Culture (01/11/17 04:25) Ct Brain W/O Iv Contrast(Rout) (01/11/17 04:25) Blood Glucose (01/11/17 04:25) Ecg Monitoring (01/11/17 04:25) Iv Access Insert/Monitor (01/11/17 04:25) Oximetry (01/11/17 04:25) Sodium Chloride 0.9% Flush (Ns Flush) (01/11/17 04:30) Sodium Chlorid 0.9% 500 Ml Inj (Ns 500 M (01/11/17 04:30) Urine Culture (01/11/17 04:26) Chest, Single Ap (01/11/17 ) Piperacil-Tazo 4.5 Gm Premix (Zosyn 4.5 (01/11/17 05:45) Vancomycin Inj (Vancomycin Inj) (01/11/17 05:45) Sodium Chlor 0.9% 1000 Ml Inj (Ns 1000 M (01/11/17 05:45) Sodium Chlorid 0.9% 500 Ml Inj (Ns 500 M (01/11/17 05:45) Admit Order (Ed Use Only) (01/11/17 06:19) Labs Laboratory Tests Test 01/11/17 01/11/17 04:26 04:30 White Blood Count 7.9 TH/MM3 Red Blood Count 4.51 MIL/MM3 Hemoglobin 12.4 GM/DL Hematocrit 38.2 % Mean Corpuscular Volume 84.7 FL Mean Corpuscular Hemoglobin 27.4 PG Mean Corpuscular Hemoglobin 32.3 % Concent Red Cell Distribution Width 14.9 % Platelet Count 179 TH/MM3 Mean Platelet Volume 8.5 FL Neutrophils (%) (Auto) 70.7 % Lymphocytes (%) (Auto) 11.9 % Monocytes (%) (Auto) 14.9 % Eosinophils (%) (Auto) 1.3 % Basophils (%) (Auto) 1.2 % Neutrophils # (Auto) 5.6 TH/MM3 Lymphocytes # (Auto) 0.9 TH/MM3 Monocytes # (Auto) 1.2 TH/MM3 Eosinophils # (Auto) 0.1 TH/MM3 Basophils # (Auto) 0.1 TH/MM3 CBC Comment DIFF FINAL Differential Comment Prothrombin Time 15.5 SEC Prothromb Time International 1.4 RATIO Ratio Urine Color YELLOW Urine Turbidity HAZY Urine pH 5.5 Urine Specific [place] 1.022 Urine Protein 100 mg/dL Urine Glucose (UA) NEG mg/dL Urine Ketones NEG mg/dL Urine Occult Blood MOD Urine Nitrite NEG Urine Bilirubin NEG Urine Urobilinogen LESS THAN 2.0 MG/DL Urine Leukocyte Esterase LARGE Urine RBC 97 /hpf Urine WBC /hpf Urine WBC Clumps FEW Urine Squamous Epithelial <1 /hpf Cells Urine Bacteria RARE /hpf Urine Hyaline Casts 9 /lpf Urine Granular Casts 2 /lpf Urine Mucus FEW /lpf Microscopic Urinalysis Comment CATH-CULTURE IND Sodium Level 142 MEQ/L Potassium Level 3.7 MEQ/L Chloride Level 105 MEQ/L Carbon Dioxide Level 23.5 MEQ/L Anion Gap 14 MEQ/L Blood Urea Nitrogen 30 MG/DL Creatinine 0.99 MG/DL Estimat Glomerular Filtration 71 ML/MIN Rate Random Glucose 73 MG/DL Calcium Level 8.4 MG/DL Total Bilirubin 2.3 MG/DL Aspartate Amino Transf 36 U/L (AST/SGOT) Alanine Aminotransferase 21 U/L (ALT/SGPT) Alkaline Phosphatase 81 U/L Total Creatine Kinase 297 U/L Troponin I 0.02 NG/ML Total Protein 6.5 GM/DL Albumin 3.2 GM/DL Thyroid Stimulating Hormone 3.980 uIU/ML 3rd Gen Lactic Acid Level 4.4 mmol/L Ammonia 32 MCMOL/L MDM Medical Decision Making Medical Screen Exam Complete: Yes Emergency Medical Condition: Yes Medical Record Reviewed: Yes Interpretation(s) Twelve-lead EKG was reviewed by me. Due to patient being very combative and was hard to get a good quality EKG. Heart rate is 121 bpm, looks like atrial fibrillation., Normal axis, right bundle branch block Differential Diagnosis Sepsis, intracranial bleed, electrolyte abnormalities, side effect of the hydrocodone Narrative Course 5:52 AM blood test results of back. Lactic acid is significantly elevated. I' ve ordered IV Zosyn and IV vancomycin for broad coverage and 2 L of IV fluid bolus. Awaiting for the head CT report and chest x-ray. Patient will require to be admitted. Awaiting for the hospitalist to call back. His TSH was elevated. Patient has UTI which should be covered by the product spectrum antibiotic. Chest x-ray showed cardiomegaly. He was given judicious fluid bolus for sepsis keeping in mind his cardiomegaly. Critical Care Narrative Aggregate critical care time was 45 minutes. Time to perform other separately billable procedures was not included in the critical care time. My time did not include minutes spent treating any other patients simultaneously or on activities that did not directly contribute to the patient's treatment. The services I provided to this patient were to treat and/or prevent clinically significant deterioration that could result in: Altered mental status, sepsis, UTI I provided critical care services requiring my management, as noted below: Chart data review, documentation time, medication orders and management, vital sign assessments/reviewing monitor data, ordering and reviewing lab tests, ordering and interpreting/reviewing x-rays and diagnostic studies, care of the patient and discussion of the patient with the admitting physicians. Procedures EKG Prior to Arrival: No Diagnosis Primary Impression: Sepsis Qualified Code: A41.9 - Sepsis, due to unspecified organism Additional Impressions: Altered mental status Qualified Code: R41.0 - Delirium UTI (urinary tract infection) Qualified Code: N39.0 - Urinary tract infection without hematuria, site unspecified Admitting Information Admitting Physician Requests: Dillan Loco MD Jan 11, 2017 04:24 Qualified Code: N39.0 - Urinary tract infection without hematuria, site unspecified Admitting Information Admitting Physician Requests: iDllan Loco MD Jan 11, 2017 04:24
[2017-01-11] MEDS ORDERED: SODIUM CHLORID 0.9% 500 ML INJ 500 ML IV ONE ×2 (04:30→05:45)
[2017-01-11] MEDS ORDERED: SODIUM CHLORIDE 0.9% FLUSH 5 ML FLUSH IVF PRN (04:30)
[2017-01-11] MEDS ORDERED: SERO25TA PO (04:42)
[2017-01-11] MEDS ORDERED: HYDR-3288 PO (04:42)
[2017-01-11] MEDS ORDERED: AUGM500T7 PO (04:42)
[2017-01-11] MEDS ORDERED: DEXT1LIQ PO (04:42)
[2017-01-11 04:46] LABS: AUTOMATED NEUTROPHIL # 5.6 TH/MM3 (1.8-7.7); BASOPHIL # 0.1 TH/MM3 (0-0.2); BASOPHIL % 1.2 % (0.0-2.0); EOSINOPHIL # 0.1 TH/MM3 (0-0.4); EOSINOPHIL % 1.3 % (0.0-4.0); HEMATOCRIT 38.2 % (39.0-51.0); HEMO FLAGS DIFF FINAL; LYMPH % 11.9 % (9.0-44.0); LYMPHOCYTE # 0.9 TH/MM3 (1.0-4.8); MEAN CELL VOLUME 84.7 FL (80.0-100.0); MEAN CORPUSCULAR HEMOGLOBIN 27.4 PG (27.0-34.0); MEAN CORPUSCULAR HGB CONC 32.3 % (32.0-36.0); MONO % 14.9 % (0.0-8.0); NEUT % 70.7 % (16.0-70.0); PLATELET COUNT 179 TH/MM3 (150-450); RED BLOOD COUNT 4.51 MIL/MM3 (4.50-5.90); RED CELL DISTRIBUTION WIDTH 14.9 % (11.6-17.2); WHITE BLOOD COUNT 7.9 TH/MM3 (4.0-11.0)
[2017-01-11 05:02] LABS: BACTERIA, URINE RARE /hpf; BLOOD, URINE MOD (NEG); COMMENT (UR) CATH-CULTURE IND; CULTURE IF INDICATED CATH CULTURE IND; GLUCOSE,URINE NEG (NEG); GRANULAR CAST, URINE 2 /lpf; HYALINE CAST, URINE 9 /lpf (RARE); KETONE, URINE NEG (NEG); MUCUS URINE FEW /lpf (OCC); NITRITE,URINE NEG (NEG); PH, URINE 5.5 (5.0-8.5); SQUAMOUS EPITHELIAL CELL URINE <1 /hpf (0-5); URINE COLOR YELLOW (YELLW/STRAW)
[2017-01-11 05:11] LABS: INTERNATIONAL NORMALIZED RATIO 1.4 RATIO; PROTHROMBIN TIME - PATIENT 15.5 SEC (9.8-11.6)
[2017-01-11 05:15] LABS: ALT (GPT) 21 U/L (12-78); ANION GAP 14 MEQ/L (5-15); AST (GOT) 36 U/L (15-37); BICARBONATE 23.5 MEQ/L (21.0-32.0); BLOOD UREA NITROGEN 30 MG/DL (7-18); CHLORIDE 105 MEQ/L (98-107); GLOMERULAR FILTRATION RATE 71 ML/MIN (>89); POTASSIUM 3.7 MEQ/L (3.5-5.1); SODIUM (NA) 142 MEQ/L (136-145)
[2017-01-11 05:25] LABS: ALKALINE PHOSPHATASE 81 U/L (45-117); CREATINE KINASE 297 U/L (39-308); TOTAL BILIRUBIN ADULT 2.3 MG/DL (0.2-1.0)
[2017-01-11] MEDS ORDERED: VANCOMYCIN INJ 1,000 MG in SODIUM CHLOR 0.9% 250 ML INJ 250 ML IV ONE (05:45)
[2017-01-11] MEDS ORDERED: SODIUM CHLOR 0.9% 1000 ML INJ 1,000 ML IV ONE (05:45)
[2017-01-11] MEDS ORDERED: PIPERACIL-TAZO 4.5 GM PREMIX 100 ML IV ONE (05:45)
--- NOTE | 2017-01-11 06:01 | RADRPT ---
EXAM DATE/TIME: 01/11/2017 05:05 [facility] COMPARISON: No previous studies available for comparison. INDICATIONS : Altered mental status. RADIATION DOSE: 52.14 CTDIvol (mGy) MEDICAL HISTORY : Hypertension. SURGICAL HISTORY : None. ENCOUNTER: Initial ACUITY: 1 day PAIN SCALE: Non-responsive LOCATION: cranial TECHNIQUE: Multiple contiguous axial images were obtained of the head. Using automated exposure control and adj ustment of the mA and/or kV according to patient size, radiation dose was kept as low as reasonably a chievable to obtain optimal diagnostic quality images. FINDINGS: There is marked central and cortical atrophy with dilatation of ventricular and sulcal spaces. There is no parenchymal hemorrhage, acute infarction or mass lesion identified. There are no extra-axial fluid collections appreciated. The posterior fossa is unremarkable with midline fourth ventricle. T he portion of the orbits and paranasal sinuses visualized are unremarkable. CONCLUSION: No acute findings. Improved maxillary and ethmoid sinus disease from January 06. Atul Esparza MD on January 11, 2017 at 5:59 Board Certified Radiologist. This report was verified electronically.
[2017-01-11] MEDS ORDERED: NALOXONE HCL 0.4 MG/ML AMP IV PRN (06:30)
[2017-01-11] MEDS ORDERED: SODIUM CHLORIDE 0.9% FLUSH 5 ML FLUSH FLUSH PRN (06:30)
[2017-01-11] MEDS ORDERED: Vancomycin Consult Pharmacy 1 EA OTHER SCH (06:30)
[2017-01-11 06:39] LABS: LACTIC ACID GHOST NOT REPORTABLE
--- NOTE | 2017-01-11 06:48 | RADRPT ---
EXAM DATE/TIME: 01/11/2017 06:14 [facility] COMPARISON: CHEST SINGLE AP, January 06, 2017, 23:14. INDICATIONS : Cough. Altered mental status. MEDICAL HISTORY : Hypertension. SURGICAL HISTORY : None. ENCOUNTER: Initial ACUITY: 1 day PAIN SCORE: Non-responsive. LOCATION: chest FINDINGS: A single view of the chest demonstrates cardiomegaly. Mild basilar airspace disease. Small effusions. No pneumothorax. CONCLUSION: 1. Cardiomegaly with small bilateral pleural effusions and minimal basilar airspace disease. Atul Esparza MD on January 11, 2017 at 6:44 Board Certified Radiologist. This report was verified electronically.
[2017-01-11] MEDS ORDERED: DEXTROSE 50% IN WATER 50 ML SYRINGE ONE (07:30)
[2017-01-11] MEDS ORDERED: GLUCAGON 1 MG/ML VIAL OTHER PRN (07:45)
[2017-01-11] MEDS ORDERED: PILL SPLITTER OTHER PRN (08:15)
[2017-01-11] MEDS: D5-1/2 NS + KCL 10 MEQ INJ 1,000 ML IV SCH ×2 (08:21→18:15)
[2017-01-11] MEDS: DOCUSATE SODIUM 100 MG CAP PO SCH ×2 (08:54→21:44)
[2017-01-11] MEDS: ENOXAPARIN SODIUM 40 MG/0.4 ML SYRINGE SQ SCH (08:54)
[2017-01-11] MEDS ORDERED: FUROSEMIDE 40 MG TAB PO SCH (09:00)
[2017-01-11] MEDS: SODIUM CHLORIDE 0.9% FLUSH 5 ML FLUSH FLUSH SCH ×2 (09:00→21:00)
[2017-01-11] MEDS ORDERED: CLOPIDOGREL 75 MG TAB PO SCH (09:00)
[2017-01-11] MEDS: FINASTERIDE 5 MG TAB PO SCH (09:00)
[2017-01-11] MEDS ORDERED: DILTIAZEM-CD 120 MG CAP ER PO SCH (09:00)
[2017-01-11] MEDS: QUEtiapine FUMARATE 25 MG TAB PO SCH ×2 (09:00→10:21)
[2017-01-11] MEDS: INSULIN ASPART SUPPLEMENTAL SCALE SQ SCH ×3 (11:00→21:00)
[2017-01-11] MEDS ORDERED: HALOPERIDOL LACTATE 5 MG/ML AMP IM PRN (11:15)
--- NOTE | 2017-01-11 11:40 | HHI.HP ---
[facility] Villa Harris MD Admission Diagnosis altered mental status, sepsis, UTI, atrial fibrillation Diagnoses: Chief Complaint: Altered mental status Travel History International Travel<30 Days: No Contact w/Intl Traveler <30 Da: No Traveled to Known Affected Are: No History of Present Illness Most of the history obtained from EMR and healthcare surrogate at bedside. The patient is an 89-year-old male who resides at a [facility]. He was brought into the hospital for increasing agitation and aggression toward staff. He does have advanced dementia. He was seen in the ER here about 4 days ago for agitation and falls. He was diagnosed with a UTI but his urine culture is negative. Apparently the patient continued to be aggressive at the [facility] with prompted the emergency room visit. In the background, he has been stable from medical standpoint. He had a TURP for BPH last month and has been doing very well from a urologic standpoint. A Claros was inserted when he presented to the emergency room overnight. He is currently still very agitated , trashing about in the bed. He is having some hematuria but appear to be clearing up presumably from a traumatic Claros. Review of Systems ROS Limitations: Clinical Condition, Altered Mental Status, Uncooperative Unable to obtain accurate review of systems due to the patient's altered mental status. Past Family Social History Past Medical History Atrial fibrillation CHF Coronary artery disease Dementia BPH Hypertension Past Surgical History TURP Reported Medications Reported Meds & Active Scripts Active Macrobid (Nitrofurantoin Monoh/Nitrofur Macro) 100 Mg Cap 100 Mg PO BID 7 Days Reported Seroquel (Quetiapine Fumarate) 25 Mg Tab 25 Mg PO DAILY [place] (Hydrocodone-Acetaminophen) 7.5-325 mg Tab 1 Tab PO Q4H PRN Augmentin (Amoxicillin-Clavulanate) 500-125 mg Tab 500 Mg PO DAILY Albuterol Neb (Albuterol Sulfate) 2.5 Mg/0.5 Ml Neb 2.5 Mg NEB Q6HR NEB Note: The Albuterol Sulfate Inhalation Solution is concentrated and must be diluted. Read complete instructions carefully before using. Mucinex ER 12 HR (Guaifenesin) 600 Mg Trista 600 Mg PO BID Plavix (Clopidogrel Bisulfate) 75 Mg Tab 75 Mg PO DAILY Lorazepam 0.5 Mg Tab 0.5 Mg PO Q8H PRN Potassium Chloride Microencaps 10 Meq Tab 10 Meq PO DAILY Trazodone (Trazodone HCl) 50 Mg Tab 25 Mg PO HS Tamsulosin (Tamsulosin HCl) 0.4 Mg Cap 0.4 Mg PO HS Senna (Sennosides) 8.6 Mg Tab 8.6 Mg PO HS Furosemide 40 Mg Tab 40 Mg PO BID Finasteride 5 Mg Tab 5 Mg PO DAILY Do not crush. Docusate Sodium 100 Mg Cap 100 Mg PO BID Diltiazem (Diltiazem HCl) 120 Mg Tab 120 Mg PO DAILY Tylenol (Acetaminophen) 325 Mg Cap 650 Mg PO QID PRN Loperamide Liq (Loperamide HCl) 1 Mg/5 Ml Liq 4 Mg PO DIRECTED PRN 2 mg (10 mL) after each loose stool. Not to exceed 16 mg (80 mL) per day. Fleet Enema Rectal (Sodium Phosphates Rectal) 7-19 Gm/118 Ml Enem 118 Ml RECTAL DAILY PRN Fleet Bisacodyl Enema (Bisacodyl) 10 Mg/37 Ml Enem 37 Ml RECTAL DAILY PRN Loperamide (Loperamide HCl) 2 Mg Cap 2 Mg PO DIRECTED PRN One capsule after each loose stool. Not to exceed 8 capsules per day. Milk of Magnesia Liq (Magnesium Hydroxide) 400 Mg/5 Ml Susp 30 Ml PO Q6H PRN Maalox Advanced Maximum Strength Liq (Svpmvzcw-Mwwtwigtt-Korwzqremaa Liq) 400- 400-40 Mg/5 Ml Susp 30 Ml PO QID Take between meals or as directed. Shake well. Maximum 60 ml/24 hrs. Allergies: Coded Allergies: No Known Allergies (Unverified , 01/11/17) Family History Unable to obtain due to the patient's condition Social History No reports of alcohol or tobacco use. Physical Exam Vital Signs Vital Signs Date Time Temp Pulse Resp B/P Pulse Ox O2 Delivery O2 Flow Rate FiO2 01/11/17 10:00 98.1 135 24 130/77 01/11/17 07:22 109 20 126/84 94 Nasal Cannula 2 01/11/17 04:31 97.9 133 18 138/57 97 Physical Exam GENERAL: Elderly male, very agitated and trashing in the bed. SKIN: Bilateral forearm with superficial lacerations. HEAD: Atraumatic. Normocephalic. EYES: Pupils equal round and reactive. ENT: Nose drainage. Airway patent. NECK: Trachea midline. No JVD or lymphadenopathy. Supple, nontender, no meningeal signs. CARDIOVASCULAR: Heart rate in the 110s and irregular rhythm without murmurs, gallops, or rubs. RESPIRATORY: Clear to auscultation. Breath sounds equal bilaterally. No wheezes , rales, or rhonchi. GASTROINTESTINAL: Abdomen soft, nondistended. No guarding. MUSCULOSKELETAL: Extremities without clubbing, cyanosis, or edema. NEUROLOGICAL: Awake and alert. Very confused and agitated. Nonsensical speech. No focal weakness. Moves all extremities. Laboratory Laboratory Tests Test 01/11/17 01/11/17 01/11/17 04:26 04:30 07:01 White Blood Count 7.9 Red Blood Count 4.51 Hemoglobin 12.4 Hematocrit 38.2 Mean Corpuscular Volume 84.7 Mean Corpuscular Hemoglobin 27.4 Mean Corpuscular Hemoglobin 32.3 Concent Red Cell Distribution Width 14.9 Platelet Count 179 Mean Platelet Volume 8.5 Neutrophils (%) (Auto) 70.7 Lymphocytes (%) (Auto) 11.9 Monocytes (%) (Auto) 14.9 Eosinophils (%) (Auto) 1.3 Basophils (%) (Auto) 1.2 Neutrophils # (Auto) 5.6 Lymphocytes # (Auto) 0.9 Monocytes # (Auto) 1.2 Eosinophils # (Auto) 0.1 Basophils # (Auto) 0.1 CBC Comment DIFF FINAL Differential Comment Prothrombin Time 15.5 Prothromb Time International 1.4 Ratio Urine Color YELLOW Urine Turbidity HAZY Urine pH 5.5 Urine Specific [place] 1.022 Urine Protein 100 Urine Glucose (UA) NEG Urine Ketones NEG Urine Occult Blood MOD Urine Nitrite NEG Urine Bilirubin NEG Urine Urobilinogen LESS THAN 2.0 Urine Leukocyte Esterase LARGE Urine RBC 97 Urine WBC Urine WBC Clumps FEW Urine Squamous Epithelial <1 Cells Urine Bacteria RARE Urine Hyaline Casts 9 Urine Granular Casts 2 Urine Mucus FEW Microscopic Urinalysis Comment CATH-CULTURE IND Sodium Level 142 Potassium Level 3.7 Chloride Level 105 Carbon Dioxide Level 23.5 Anion Gap 14 Blood Urea Nitrogen 30 Creatinine 0.99 Estimat Glomerular Filtration 71 Rate Random Glucose 73 Calcium Level 8.4 Total Bilirubin 2.3 Aspartate Amino Transf 36 (AST/SGOT) Alanine Aminotransferase 21 (ALT/SGPT) Alkaline Phosphatase 81 Total Creatine Kinase 297 Troponin I 0.02 Total Protein 6.5 Albumin 3.2 Thyroid Stimulating Hormone 3.980 3rd Gen Lactic Acid Level 4.4 2.3 Ammonia 32 Date/Time Procedure Status Source Growth 01/11/17 04:35 Aerobic Blood Culture Received Blood Peripheral Pending 01/11/17 04:35 Anaerobic Blood Culture Received Blood Peripheral Pending 01/11/17 04:26 Urine Culture Received Urine Catheterized Urine Pending Result Diagram: 01/11/1742501/11/17425 Imaging Last Impressions Head CT 01/11/17424 Signed Impressions: Service Date/Time: Wednesday, January 11, 2017 05:05 - CONCLUSION: No acute findings. Improved maxillary and ethmoid sinus disease from January 06. Atul Esparza MD Chest X-Ray 01/11/17 0000 Signed Impressions: Service Date/Time: Wednesday, January 11, 2017 06:14 - CONCLUSION: 1. Cardiomegaly with small bilateral pleural effusions and minimal basilar airspace disease. Atul Esparza MD Assessment and Plan Problem List: (1) Dementia with behavioral disturbance ICD Code: F03.91 Status: Acute (2) Urethral trauma ICD Code: S37.30XA Status: Acute (3) Abnormal urinalysis ICD Code: R82.90 Status: Acute (4) Atrial fibrillation ICD Code: I48.91 Status: Acute Assessment and Plan 89-year-old male admitted with: Acute encephalopathy: At baseline the patient is usually calm but has had periods of aggression lately. I suspect Dementia with behavioral disturbances. Suspect progression of his disease with worsening behavioral symptoms. He does have an abnormal urinalysis but cultures a couple of days ago was negative. - Discussed with RN to give a dose of Haldol. Consult palliative care to assist with symptom management and interpretation of his advanced directive. Continue trazodone and Seroquel. Abnormal urinalysis and elevated lactic acid: - Continue Zosyn - Follow cultures. Hematuria probably secondary to traumatic Claros. Patient reportedly was tugging at his Claros in the emergency room. - We'll discontinue Claros at this time. Continue to monitor. Atrial fibrillation: Continue Cardizem. Hold blood thinners for tonight to ensure hematuria resolved. Continue home medications for his chronic conditions as indicated. Discussed Condition With The patient's healthcare surrogate Sally. Physician Certification 2 Midnight Certification Type: Admission for Inpatient Services Order for Inpatient Services The services are ordered in accordance with Medicare regulations or non- Medicare payer requirements, as applicable. In the case of services not specified as inpatient-only, they are appropriately provided as inpatient services in accordance with the 2-midnight benchmark. Estimated LOS (days): 3 days is the estimated time the patient will need to remain in the hospital, assuming treatment plan goals are met and no additional complications. Post-Hospital Plan: [facility] Clau Ramirez MD Jan 11, 2017 11:40
[2017-01-11] MEDS ORDERED: HALOPERIDOL LACTATE 5 MG/ML AMP IM ONE (12:00)
[2017-01-11] MEDS: PIPERACIL-TAZO 4.5 GM PREMIX 100 ML IV SCH ×2 (13:33→22:03)
--- NOTE | 2017-01-11 15:29 | EKG ---
Date Performed: 01/11/2017 Time Performed: 04:50:28 PTAGE: 89 years EKG: ATRIAL FIBRILLATION WITH RAPID VENTRICULAR RESPONSE WITH ABERRANT CONDUCTION OR VENTRICULAR PREMATURE COMPLEXES INDETERMINATE AXIS MARKED ST DEPRESSION, CONSIDER SUBENDOCARDIAL INJURY ABNORMA L ECG PREVIOUS TRACING : 01/07/2017 00.03 Compared to prior tracing no significant change DOCTOR: Rema Sparrow Interpretating Date/Time 01/11/2017 15:29:05
--- NOTE | 2017-01-11 16:28 | PD.CONS ---
Consult Service Palliative Care . Consult Requested By Dr. Ramirez . Primary Care Physician Villa Harris MD . Reason for Consultation a. To assist with evaluation and management of symptoms including: Agitation , confusion b. To assist medical decision maker(s) with: better understanding of current medical conditions; weighing benefits/burdens of medical treatment options; making medical treatment decisions. . (Radah Bai) HPI History of Present Illness Mr. Stacy is an 89-year-old male who presented to [facility] on 01/11/17 for evaluation of altered mental status, delirium, combativeness and oxygen saturations in the mid 80s on 3 L of oxygen via Nasal cannula. Patient is a resident at a [facility]. Patient has a history of dementia and is confused at baseline. He is a poor historian, extremely hard of hearing. The patient was seen at [facility] a few days earlier before for evaluation of agitation and falls. At that time he was diagnosed with a L1 and L2 compression fracture , chronic versus acute. Patient was also diagnosed with a UTI at that time, cultures were currently negative. Patient received a dose of IV ceftriaxone while in the ED and was discharged with a prescription for Macrobid. Digital diagnostic findings in the ED include: * Vital signs: Pulse 133, respirations 18, BP 138/57, oxygen saturation 97% on room air, core temperature 97.9 * Sodium 142, potassium 3.7, chloride 105, carbon dioxide 23.5, glucose 73, calcium 8.4 * BUN: 30, creatinine 0.99, estimated GFR 71 * Lactic acid: 4.4 * Total bilirubin: 2.8, AST 36, ALT 21, alkaline phosphatase 81 * Ammonia: 32 * Total creatine kinase: 297 * Troponin 0.02 * Total protein 6.5, albumin 3.2 * PT: 15.5, INR 1.4 * Urinalysis with protein, blood, leukocyte esterase, RBC, WBC clumps, bacteria and mucusculture indicated * Urine culturepending * Blood culturepending * Chest x-ray: Shows cardiomegaly with small bilateral pleural effusions and minimal nasal or airspace disease * Head CT: No acute findings. Improved maxillary and ethmoid sinus disease from January 06, 2017. * WBC: 7.9, hemoglobin 12.4, hematocrit 38.2, platelets 179, neutrophils 70.7 % * EKG: Atrial fibrillation with RVR Patient was in atrial fibrillation with RVR. His lactic acid was significantly elevatedthe patient was subsequently started on IV Zosyn and IV vancomycin for broad-spectrum coverage. He received 2 L of IV fluid. His chest x-ray showed cardiomegaly. The patient was admitted for further evaluation and medical management of suspected sepsis, altered mental status, delirium, UTI. Palliative Care was consulted to assist with symptom management and to discuss with the family the benefits and burdens of her current illnesses and the options regarding future care. . Function/Cognitive Trajectory The is the patient's third hospitalization since September 23, 2016. He appears frail, cachectic. Per review of notes, the patient has had a 13 pound weight loss in the past 4 months. His current BMI is 16.4. Further information related to Doxil and cognitive trajectory pending family meeting. . (Radha Bai) Review of Systems ROS Limitations: Altered Mental Status (Radha Bai) Past Family Social History Coded Allergies: No Known Allergies (Unverified , 01/11/17) Past Medical History Atrial fibrillation Dementia CHF BPH Hypertension . Past Surgical History Neck surgery TURP . Reported Medications Seroquel (Quetiapine Fumarate) 25 Mg Tab 25 Mg PO DAILY Pinson (Hydrocodone-Acetaminophen) 7.5-325 mg Tab 1 Tab PO Q4H PRN Augmentin (Amoxicillin-Clavulanate) 500-125 mg Tab 500 Mg PO DAILY Albuterol Neb (Albuterol Sulfate) 2.5 Mg/0.5 Ml Neb 2.5 Mg NEB Q6HR NEB Note: The Albuterol Sulfate Inhalation Solution is concentrated and must be diluted. Read complete instructions carefully before using. Mucinex ER 12 HR (Guaifenesin) 600 Mg Trista 600 Mg PO BID Plavix (Clopidogrel Bisulfate) 75 Mg Tab 75 Mg PO DAILY Lorazepam 0.5 Mg Tab 0.5 Mg PO Q8H PRN Potassium Chloride Microencaps 10 Meq Tab 10 Meq PO DAILY Trazodone (Trazodone HCl) 50 Mg Tab 25 Mg PO HS Tamsulosin (Tamsulosin HCl) 0.4 Mg Cap 0.4 Mg PO HS Senna (Sennosides) 8.6 Mg Tab 8.6 Mg PO HS Furosemide 40 Mg Tab 40 Mg PO BID Finasteride 5 Mg Tab 5 Mg PO DAILY Do not crush. Docusate Sodium 100 Mg Cap 100 Mg PO BID Diltiazem (Diltiazem HCl) 120 Mg Tab 120 Mg PO DAILY Tylenol (Acetaminophen) 325 Mg Cap 650 Mg PO QID PRN Loperamide Liq (Loperamide HCl) 1 Mg/5 Ml Liq 4 Mg PO DIRECTED PRN 2 mg (10 mL) after each loose stool. Not to exceed 16 mg (80 mL) per day. Fleet Enema Rectal (Sodium Phosphates Rectal) 7-19 Gm/118 Ml Enem 118 Ml RECTAL DAILY PRN Fleet Bisacodyl Enema (Bisacodyl) 10 Mg/37 Ml Enem 37 Ml RECTAL DAILY PRN Loperamide (Loperamide HCl) 2 Mg Cap 2 Mg PO DIRECTED PRN One capsule after each loose stool. Not to exceed 8 capsules per day. Milk of Magnesia Liq (Magnesium Hydroxide) 400 Mg/5 Ml Susp 30 Ml PO Q6H PRN Maalox Advanced Maximum Strength Liq (Lmojmkar-Narfzhbzn-Nljwkzfloqq Liq) 400- 400-40 Mg/5 Ml Susp 30 Ml PO QID Take between meals or as directed. Shake well. Maximum 60 ml/24 hrs. . Current Medications Medications (Trade) Dose Ordered Sig/Kiarra Route Start Time Stop Time Status Last Admin (NS Flush) 2 ml UNSCH PRN FLUSH 01/11/17 06:30 (NS Flush) 2 ml BID FLUSH 01/11/17 09:00 (Lovenox Inj) 40 mg Q24H SQ 01/11/17 09:00 Hold 01/11/17 08:54 Naloxone HCl 0.4 mg 0.4 mg UNSCH PRN IV 01/11/17 06:30 Pharmacy Profile Note 0 ml @ 0 mls/hr UNSCH OTHER 01/11/17 06:30 Piperacillin Sod/ Tazobactam Sod 100 ml @ 200 mls/hr Q6H IV 01/11/17 13:00 01/11/17 13:33 (D5-1/2 NS + KCl 10 Meq Inj) 1,000 ml @ 100 mls/hr Q10H IV 01/11/17 08:00 01/11/17 08:21 (D50w (Vial) Inj) 25 ml UNSCH PRN IV PUSH 01/11/17 07:45 (Glucagon Inj) 1 mg UNSCH PRN OTHER 01/11/17 07:45 (Plavix) 75 mg DAILY PO 01/11/17 09:00 Hold (Colace) 100 mg BID PO 01/11/17 09:00 (Proscar) 5 mg DAILY PO 01/11/17 09:00 (Lasix) 40 mg BID PO 01/11/17 09:00 (Ativan) 0.5 mg Q8H PRN PO 01/11/17 07:45 (SEROquel) 25 mg DAILY PO 01/11/17 09:00 (Flomax) 0.4 mg HS PO 01/11/17 21:00 (Desyrel) 25 mg HS PO 01/11/17 21:00 (Cardizem Cd) 120 mg DAILY PO 01/11/17 09:00 (Pill Splitter) 1 ea UNSCH PRN OTHER 01/11/17 08:15 (Haldol Inj) 1 mg Q6H PRN IM 01/11/17 11:15 Family History Pending family meeting . Substance Use Tobacco: None known Alcohol: None known Prescription med abuse: None known Illicits: None known . Psychosocial History Pending family meeting . Spiritual/Cultural Factors Mu-Ism wilmer . (Radha Bai) Living Will: Copy in medical record Health Care Surrogate: Copy in medical record Durable Power of Fruit Farmer: Copy in medical record Date completed: July 26, 2005 . Health Care Surrogate(s): Heather Temple is the designated health care surrogate. Elvis Villarreal is designated as the alternate health care surrogate. . Documented care wishes: Living will was completed on July 26, 2005. Patient states that he is qualified to be certified for hospice care, he wishes to be certified for hospice care and to receive palliative care and management of his illness. He does not want his life to be prolonged if he has an incurable/irreversible condition, if he is in a vegetative state, is the medical risks and physical burdens of treatment outweigh the expected medical benefits. In those circumstances the patient does not want artificial nutrition or artificial hydration. If the patient were to have an incurable/irreversible condition that would result in his within a relatively short period of time, he does not want pharmacological treatments for measures to be administered to him if he is diagnosed with pneumonia (or a similar condition) as a secondary condition. . Today's verbally stated goals: Patient is not capacitated to participate and clarification of medical treatment goals. It is unknown if the patient will regain capacity. Baseline unknown. However, the patient has advanced dementia which is an indicator that the patient will likely not regain this capacity. . Family/friends goals: Goals remain aggressive at this time up to the point of cardiopulmonary resuscitation. . Ethical and Legal Issues No known ethical issues impacting care at this time . (Radha Bai) Physical Exam Vital Signs Date Time Temp Pulse Resp B/P Pulse Ox O2 Delivery O2 Flow Rate FiO2 01/11/17 12:00 97.6 113 18 113/69 100 01/11/17 10:00 98.1 135 24 130/77 01/11/17 07:22 109 20 126/84 94 Nasal Cannula 2 01/11/17 04:31 97.9 133 18 138/57 97 . Exam CONSTITUTIONAL/GENERAL: This is a frail, malnourished elderly male patient currently agitated. TUBES/LINES/DRAINS: PIV SKIN: Bilateral upper extremities are wrapped in gauze, tegaderm noted on skin tears. Ecchymoses on upper extremities. No wounds seen anteriorly. Skin temperature appropriate. Not diaphoretic. HEAD: Atraumatic. Normocephalic. EYES: PERRLA. No scleral icterus. Fundi not examined. ENT: [place]. Nose without bleeding or purulent drainage. NECK: Trachea midline. Supple, nontender. No palpable thyroid enlargement or nodularity. CARDIOVASCULAR: Heart rate in the 110s, irregular. No murmurs, gallops or rubs. RESPIRATORY/CHEST: Symmetric, unlabored respirations. Clear to auscultation. Breath sounds equal bilaterally. No wheezes, rales, or rhonchi. GASTROINTESTINAL: Abdomen soft, non-tender, nondistended. No guarding. Bowel sounds present. GENITOURINARY: Without palpable bladder distension. MUSCULOSKELETAL: Extremities without clubbing, cyanosis, or edema. No mottling or clubbing. LYMPHATICS: No palpable cervical or supraclavicular adenopathy. NEUROLOGICAL: Patient is confused, agitated. Speech is nonsensical, garbled at times. Patient does not answer questions appropriately. Does not follow commands. Moving all extremities 4. PSYCHIATRIC: Patient is agitated. . (Radha Bai) Diagnostic Tests Laboratory Laboratory Tests Test 01/11/17 01/11/17 01/11/17 04:26 04:30 07:01 White Blood Count 7.9 TH/MM3 (4.0-11.0) Red Blood Count 4.51 MIL/MM3 (4.50-5.90) Hemoglobin 12.4 GM/DL (13.0-17.0) Hematocrit 38.2 % (39.0-51.0) Mean Corpuscular Volume 84.7 FL (80.0-100.0) Mean Corpuscular Hemoglobin 27.4 PG (27.0-34.0) Mean Corpuscular Hemoglobin 32.3 % Concent (32.0-36.0) Red Cell Distribution Width 14.9 % (11.6-17.2) Platelet Count 179 TH/MM3 (150-450) Mean Platelet Volume 8.5 FL (7.0-11.0) Neutrophils (%) (Auto) 70.7 % (16.0-70.0) Lymphocytes (%) (Auto) 11.9 % (9.0-44.0) Monocytes (%) (Auto) 14.9 % (0.0-8.0) Eosinophils (%) (Auto) 1.3 % (0.0-4.0) Basophils (%) (Auto) 1.2 % (0.0-2.0) Neutrophils # (Auto) 5.6 TH/MM3 (1.8-7.7) Lymphocytes # (Auto) 0.9 TH/MM3 (1.0-4.8) Monocytes # (Auto) 1.2 TH/MM3 (0-0.9) Eosinophils # (Auto) 0.1 TH/MM3 (0-0.4) Basophils # (Auto) 0.1 TH/MM3 (0-0.2) CBC Comment DIFF FINAL Differential Comment Prothrombin Time 15.5 SEC (9.8-11.6) Prothromb Time International 1.4 RATIO Ratio Urine Color YELLOW (YELLW/STRAW) Urine Turbidity HAZY (CLEAR) Urine pH 5.5 (5.0-8.5) Urine Specific [place] 1.022 (1.002-1.035) Urine Protein 100 mg/dL (NEG-TRACE) Urine Glucose (UA) NEG mg/dL (NEG) Urine Ketones NEG mg/dL (NEG) Urine Occult Blood MOD (NEG) Urine Nitrite NEG (NEG) Urine Bilirubin NEG (NEG) Urine Urobilinogen LESS THAN 2.0 MG/DL (LESS THAN 2.0) Urine Leukocyte Esterase LARGE (NEG) Urine RBC 97 /hpf (0-3) Urine WBC /hpf (0-5) Urine WBC Clumps FEW (NONE) Urine Squamous Epithelial <1 /hpf (0-5) Cells Urine Bacteria RARE /hpf (NONE) Urine Hyaline Casts 9 /lpf (RARE) Urine Granular Casts 2 /lpf (NONE) Urine Mucus FEW /lpf (OCC) Microscopic Urinalysis Comment CATH-CULTURE IND Sodium Level 142 MEQ/L (136-145) Potassium Level 3.7 MEQ/L (3.5-5.1) Chloride Level 105 MEQ/L (98-107) Carbon Dioxide Level 23.5 MEQ/L (21.0-32.0) Anion Gap 14 MEQ/L (5-15) Blood Urea Nitrogen 30 MG/DL (7-18) Creatinine 0.99 MG/DL (0.60-1.30) Estimat Glomerular Filtration 71 ML/MIN (>89) Rate Random Glucose 73 MG/DL (74-106) Calcium Level 8.4 MG/DL (8.5-10.1) Total Bilirubin 2.3 MG/DL (0.2-1.0) Aspartate Amino Transf 36 U/L (15-37) (AST/SGOT) Alanine Aminotransferase 21 U/L (12-78) (ALT/SGPT) Alkaline Phosphatase 81 U/L (45-117) Total Creatine Kinase 297 U/L (39-308) Troponin I 0.02 NG/ML (0.02-0.05) Total Protein 6.5 GM/DL (6.4-8.2) Albumin 3.2 GM/DL (3.4-5.0) Thyroid Stimulating Hormone 3.980 uIU/ML 3rd Gen (0.358-3.740) Lactic Acid Level 4.4 mmol/L 2.3 mmol/L (0.4-2.0) (0.4-2.0) Ammonia 32 MCMOL/L (11-32) . (Radha Bai) Result Diagram: 01/11/1742501/11/17425 Microbiology Microbiology Date/Time Procedure Status Source Growth 01/11/17 04:26 Aerobic Blood Culture Received Blood Peripheral Pending 01/11/17 04:26 Anaerobic Blood Culture Received Blood Peripheral Pending 01/11/17 04:26 Urine Culture Received Urine Catheterized Urine Pending 01/11/17 04:35 Aerobic Blood Culture Received Blood Peripheral Pending 01/11/17 04:35 Anaerobic Blood Culture Received Blood Peripheral Pending Imaging Last [address] 01/11/17 0425 Signed Impressions: Service Date/Time: Wednesday, January 11, 2017 05:05 - CONCLUSION: No acute findings. Improved maxillary and ethmoid sinus disease from January 06. Atul Esparza MD Chest X-Ray 01/11/17 0000 Signed Impressions: Service Date/Time: Wednesday, January 11, 2017 06:14 - CONCLUSION: 1. Cardiomegaly with small bilateral pleural effusions and minimal basilar airspace disease. Atul Esparza MD . (Radha Bai) Patient/Family Conference Present at Family Conference: Spoke to patient's health care surrogate, Heather, via telephone. Introduced palliative care and provided contact information. Patient's health care surrogate stated she cannot speak with palliative care at this time. Attempted to schedule a family meeting on Saturday01/14/17. HCS will be leaving town for the next 2 weeks. She states she will be available via her cell phone if decisions need to be made about the patient's medical treatment goals. Patient has no CODE STATUS in place at this time, discussed the process of cardiopulmonary resuscitation with the patient's health care surrogate. She states she is familiar with this process and requests the patient's CODE STATUS be changed to NO CODEDNR. . Family Conference Location: Telephone Issues Discussed: * Palliative care role, purpose, approach * Patient/family understanding of the current medical problems * Patients goals of care as best understood from advance directives and/or conversations and/or values * Likely scenarios comparing ongoing aggressive care with a transition to comfort measures only * Questions answered to the best of my ability * Palliative care contact information provided . (Radha Bai) Assessment and Plan Disease Oriented Problem List: (1) Dementia (2) BPH (benign prostatic hyperplasia) (3) Atrial fibrillation (4) Dementia with behavioral disturbance (5) Hypertension Symptom Scale: (1) Agitation (2) Confusion 0-10 Scale: Unable to quantify Pertinent Non-Medical Issues Psychosocial: Pending family meeting. Spiritual: Mu-Ism wilmer Legal: Health care surrogate designation form completed and available in EMR. Ethical issues impacting care: No known ethical issues impacting care at this time. . Important Contacts Heather Temple, Surrogate/POA: [phone] Shaun Villarreal, alternate HCS: [phone] . . Code Status: No Code Plan * NO CODE/DNR * Decision-making: Patient is not capacitated to participate and clarification of medical treatment goals. It is unknown if the patient will regain capacity. Baseline unknown. However, the patient has advanced dementia which is an indicator that the patient will likely not regain this capacity. Heather Temple is the designated health care surrogate/POA. Shaun Villarreal is designated as the alternate health care surrogate. * Goals: Goals remain aggressive up to the point of cardiopulmonary resuscitation. * Spoke to patient's health care surrogate, Heather, via telephone. Introduced palliative care and provided contact information. Patient's health care surrogate stated she cannot speak with palliative care at this time. Attempted to schedule a family meeting on Saturday01/14/17. HCS will be leaving town for the next 2 weeks. She states she will be available via her cell phone if decisions need to be made about the patient's medical treatment goals. * Patient had no CODE STATUS in place at this time, discussed the process of cardiopulmonary resuscitation with the patient's health care surrogate. She states she is familiar with this process and requests the patient's CODE STATUS be changed to NO CODEDNR. * Symptom managementagitation: Patient was started on Seroquel and Haldol . If symptoms continue Haldol frequency may be increased to every 2-4 hours PRN up to 100 mg/day. * Consider psychiatric consult * Palliative care contact information was refused by the patient's health care surrogate, Heather Temple. She prefers to be contacted on her cell phone. * Palliative care will continue to follow this patient throughout his hospitalization to build rapport, assist with symptom management and goal clarification. . . . (Radha Bai) Thank you for the opportunity to participate in the care of Mr. Cali . (Radha Bai) Attestation To help prompt me to consider important information that might be impacting today's encounter and assessment, information from prior notes written by myself or my colleagues may have been "brought forward" into today's note. My signature on this note, however, is an attestation that I personally performed the exam, history, and/or decision-making noted today, and, unless otherwise indicated, the interactions with patient, family, and staff as well as the review of records all occurred today. I also attest that the listed assessment and stated plan reflect my best clinical judgment today based on the combination of historical information, prior notes, and today's exam/ interactions. When time spent is documented, it refers only to time spent today by the signer, or if indicated, combined time spent today by collaborating physician/nurse practitioner. . (Radha Bai) Collaborating MD Comments Chart reviewed. Cased discussed with palliative care LAMP SHADE JOINER. Above LAMP SHADE JOINER note reviewed and I concur. . (Jorge Johnson MD) Radha Bai Jan 11, 2017 16:28 Jorge Johnson MD March 25, 2017 13:35
[2017-01-11] MEDS: traZODone HCL 50 MG TAB PO SCH (21:43)
[2017-01-11] MEDS: LORazepam 0.5 MG TAB PO PRN (21:44)
[2017-01-11] MEDS: TAMSULOSIN HCL 0.4 MG CAP PO SCH (21:44)
[2017-01-12] VITALS (8 sets, daily range): BP systolic 105–144; BP diastolic 57–79; PULSE 67–103; RESP 20–24; TEMP 96.3–98.2; O2SAT 92–100
[2017-01-12] MEDS: PIPERACIL-TAZO 4.5 GM PREMIX 100 ML IV SCH ×4 (01:52→18:20)
[2017-01-12 05:54] LABS: AUTOMATED NEUTROPHIL # 6.3 TH/MM3 (1.8-7.7); BASOPHIL % 0.2 % (0.0-2.0); HEMATOCRIT 35.1 % (39.0-51.0); HEMO FLAGS DIFF FINAL; LYMPH % 6.8 % (9.0-44.0); LYMPHOCYTE # 0.5 TH/MM3 (1.0-4.8); MEAN CELL VOLUME 84.6 FL (80.0-100.0); MEAN CORPUSCULAR HEMOGLOBIN 27.8 PG (27.0-34.0); MEAN CORPUSCULAR HGB CONC 32.9 % (32.0-36.0); MONO % 12.1 % (0.0-8.0); NEUT % 80.9 % (16.0-70.0); PLATELET COUNT 146 TH/MM3 (150-450); RED BLOOD COUNT 4.15 MIL/MM3 (4.50-5.90); WHITE BLOOD COUNT 7.8 TH/MM3 (4.0-11.0)
[2017-01-12] MEDS: INSULIN ASPART SUPPLEMENTAL SCALE SQ SCH ×4 (06:06→21:00)
[2017-01-12] MEDS: D5-1/2 NS + KCL 10 MEQ INJ 1,000 ML IV SCH (06:06)
[2017-01-12 06:17] LABS: BICARBONATE 22.9 MEQ/L (21.0-32.0); POTASSIUM 3.7 MEQ/L (3.5-5.1)
[2017-01-12] MEDS: FINASTERIDE 5 MG TAB PO SCH (09:00)
[2017-01-12] MEDS: DOCUSATE SODIUM 100 MG CAP PO SCH ×2 (09:00→21:29)
[2017-01-12] MEDS: QUEtiapine FUMARATE 25 MG TAB PO SCH (09:09)
[2017-01-12] MEDS: SODIUM CHLORIDE 0.9% FLUSH 5 ML FLUSH FLUSH SCH ×2 (09:12→21:00)
[2017-01-12] MEDS ORDERED: VANCOMYCIN INJ 750 MG in SODIUM CHLOR 0.9% 250 ML INJ 250 ML IV SCH (11:00)
[2017-01-12] MEDS: LORazepam 0.5 MG TAB PO PRN ×2 (11:16→21:29)
--- NOTE | 2017-01-12 11:54 | HHI.PR ---
Subjective Remarks Patient is slightly more calm today but still requiring restraints. Discussed with RN. Will attempt to give oral medications with ice cream. Objective Vitals Vital Signs Date Time Temp Pulse Resp B/P Pulse Ox O2 Delivery O2 Flow Rate FiO2 01/12/17 08:50 96 01/12/17 08:00 96.7 80 20 105/66 01/12/17 04:13 97.6 97 24 112/79 100 01/12/17 00:00 98.2 92 20 114/76 99 01/11/17 20:00 97.7 107 20 131/78 94 01/11/17 19:53 135 01/11/17 17:55 95 Nasal Cannula 2.00 01/11/17 16:00 99.4 138 24 139/105 95 01/11/17 12:00 97.6 113 18 113/69 100 I/O 01/11/17 01/11/17 01/11/17 01/12/17 01/12/17 01/12/17 07:00 15:00 23:00 07:00 15:00 23:00 Intake Total 1460 ml 824 ml Output Total 800 ml Balance 1460 ml 24 ml Intake Oral 120 ml 0 ml IV Total 1340 ml 824 ml Output Urine Total 800 ml Bladder Scan Volume Amount 477 ml # Voids 1 # Bowel Movements 0 Result Diagram: 01/12/17 0533 01/12/17 0533 Imaging Last Impressions Head CT 01/11/17 0425 Signed Impressions: Service Date/Time: Wednesday, January 11, 2017 05:05 - CONCLUSION: No acute findings. Improved maxillary and ethmoid sinus disease from January 06. Atul Esparza MD Chest X-Ray 01/11/17 0000 Signed Impressions: Service Date/Time: Wednesday, January 11, 2017 06:14 - CONCLUSION: 1. Cardiomegaly with small bilateral pleural effusions and minimal basilar airspace disease. Atul Esparza MD Objective Remarks GENERAL: Elderly male, severely demented and at times agitated SKIN: Bilateral forearm superficial lacerations. Present on admission. CARDIOVASCULAR: Rate in the 110s and irregular rhythm without murmurs. RESPIRATORY: Breath sounds equal and clear to auscultation bilaterally. GASTROINTESTINAL: Abdomen soft, non-tender, non-distended. Normal active bowel sounds MUSCULOSKELETAL: Extremities without cyanosis, or edema. NEURO: Confused and agitated. Moves all extremities. PSYCH: Agitated. A/P Problem List: (1) Dementia with behavioral disturbance ICD Code: F03.91 Status: Acute (2) Urethral trauma ICD Code: S37.30XA Status: Acute (3) Abnormal urinalysis ICD Code: R82.90 Status: Acute (4) Atrial fibrillation ICD Code: I48.91 Status: Acute Assessment and Plan 89-year-old male admitted with: Acute encephalopathy: At baseline the patient is usually calm but has had periods of aggression lately. Probable Dementia with behavioral disturbances. Suspect progression of his disease with worsening behavioral symptoms. He does have an abnormal urinalysis but cultures a couple of days ago was negative. - Slightly improved with Seroquel. Consult psychiatry for assistance. Appreciate palliative care following. Abnormal urinalysis and elevated lactic acid: - Continue Zosyn - Follow cultures for 1 more day. So far all negative. Hematuria probably secondary to traumatic Claros. Patient reportedly was tugging at his Claros in the emergency room. -Claros was discontinued. Hematuria resolved. Continue to monitor. Atrial fibrillation: Continue Cardizem. Switch to immediate release Cardizem as long acing cannot be crushed. Not on anticoagulant outpatient presumably due to high fall risk. Continue home medications for his chronic conditions as indicated. Speech therapy for swallow eval. GI prophylaxis: Stool softener PRN constipation. DVT PPx: Clau Ballesteros MD Jan 12, 2017 11:54
[2017-01-12] MEDS ORDERED: DILTIAZEM HCL 60 MG TAB PO ONE (12:15)
[2017-01-12] MEDS: DEXTROSE 50% IN WATER 50 ML VIAL(D50) IV PUSH PRN (16:05)
[2017-01-12] MEDS: DILTIAZEM HCL 30 MG TAB PO SCH ×2 (18:00→21:28)
[2017-01-12] MEDS: traZODone HCL 50 MG TAB PO SCH (21:29)
[2017-01-12] MEDS: TAMSULOSIN HCL 0.4 MG CAP PO SCH (21:29)
[2017-01-13] VITALS (11 sets, daily range): BP systolic 106–134; BP diastolic 74–85; PULSE 80–105; RESP 18–26; TEMP 94.6–97.9; O2SAT 94–100
[2017-01-13] MEDS: PIPERACIL-TAZO 4.5 GM PREMIX 100 ML IV SCH ×2 (01:34→07:38)
[2017-01-13] MEDS: D5-1/2 NS + KCL 10 MEQ INJ 1,000 ML IV SCH (01:34)
[2017-01-13] MEDS: INSULIN ASPART SUPPLEMENTAL SCALE SQ SCH ×4 (07:00→20:48)
[2017-01-13] MEDS: QUEtiapine FUMARATE 25 MG TAB PO SCH ×2 (07:40→09:00)
[2017-01-13] MEDS: ENOXAPARIN SODIUM 40 MG/0.4 ML SYRINGE SQ SCH (07:40)
[2017-01-13] MEDS: DILTIAZEM HCL 30 MG TAB PO SCH ×5 (07:40→21:00)
[2017-01-13] MEDS: SODIUM CHLORIDE 0.9% FLUSH 5 ML FLUSH FLUSH SCH ×2 (07:41→20:48)
[2017-01-13] MEDS: DOCUSATE SODIUM 100 MG CAP PO SCH ×2 (09:00→21:00)
[2017-01-13] MEDS: FINASTERIDE 5 MG TAB PO SCH (09:00)
--- NOTE | 2017-01-13 10:18 | HHI.PR ---
Subjective Remarks Patient continues to be agitated this morning requiring restraints. Nonsensical speech. Discussed with RN. Objective Vitals Vital Signs Date Time Temp Pulse Resp B/P Pulse Ox O2 Delivery O2 Flow Rate FiO2 01/13/17 08:00 97.3 105 20 118/81 94 01/13/17 04:00 97.6 88 20 106/80 94 01/13/17 00:00 97.9 88 22 118/76 94 01/12/17 20:00 97.3 89 20 121/78 94 01/12/17 19:15 92 01/12/17 16:00 96.3 103 24 144/75 100 01/12/17 12:00 96.6 98 24 135/73 94 I/O 01/12/17 01/12/17 01/12/17 01/13/17 01/13/17 01/13/17 07:00 15:00 23:00 07:00 15:00 23:00 Intake Total 824 ml 100 ml 1968 ml 1149 ml Output Total 800 ml 200 ml 1300 ml Balance 24 ml -100 ml 668 ml 1149 ml Intake Oral 0 ml 100 ml 100 ml IV Total 824 ml 1868 ml 1149 ml Output Urine Total 800 ml 200 ml 1300 ml Bladder Scan Volume Amount 477 ml 507 ml # Bowel Movements 0 0 1 Result Diagram: 01/12/1753201/12/17532 Objective Remarks GENERAL: Elderly male, severely demented and at times agitated SKIN: Bilateral forearm superficial lacerations. Present on admission. CARDIOVASCULAR: Rate in the 90s and irregular rhythm without murmurs. RESPIRATORY: Breath sounds equal and clear to auscultation bilaterally. GASTROINTESTINAL: Abdomen soft, non-tender, non-distended. Normal active bowel sounds MUSCULOSKELETAL: Extremities without cyanosis, or edema. NEURO: Confused and agitated. Moves all extremities. PSYCH: Agitated. A/P Problem List: (1) Dementia with behavioral disturbance ICD Code: F03.91 Status: Acute (2) Urethral trauma ICD Code: S37.30XA Status: Acute (3) Abnormal urinalysis ICD Code: R82.90 Status: Acute (4) Atrial fibrillation ICD Code: I48.91 Status: Acute Assessment and Plan 89-year-old male admitted with: Acute encephalopathy: At baseline the patient is reportedly calm but has had periods of aggression lately. Probable Dementia with behavioral disturbances. Suspect progression of his disease with worsening behavioral symptoms. Patient had an abnormal urinalysis but his urine cultures negative. -Psychiatry is consulted to help with behavioral symptoms. Appreciate palliative care following. Abnormal urinalysis and elevated lactic acid: Patient started on Zosyn and vancomycin on admission. So far all cultures are negative. There are no other signs or symptoms of an infectious process. - Will discontinue antibiotics for now and monitor off antibiotics. Hematuria probably secondary to traumatic Claros. Patient gets more agitated with Claros and reportedly was tugging at it. He does have a history of BPH but has been doing well since TURP surgery. -Claros was discontinued. Hematuria resolved. Continue to monitor output. Atrial fibrillation: Continue Cardizem. Switch to immediate release Cardizem as long acing cannot be crushed. Not on anticoagulant outpatient presumably due to high fall risk. Continue home medications for his chronic conditions as indicated. Speech therapy for swallow eval. GI prophylaxis: Stool softener PRN constipation. DVT PPx: Lovenox Discharge Planning Patient with severe behavioral symptoms probably related to advanced/end stage dementia. No infectious source. Antibiotics discontinued today, monitor off antibiotics. Palliative care following. May be a candidate for hospice services. Clau Ramirez MD Jan 13, 2017 10:18
[2017-01-13] MEDS: DEXTROSE 50% IN WATER 50 ML VIAL(D50) IV PUSH PRN (11:31)
--- NOTE | 2017-01-13 13:58 | PD.CONS ---
Provisional Diagnosis Admission Date Jan 11, 2017 at 06:21 [place]. Dementia with behavioral disturbance History of Present Illness Service Psychiatry Consult Requested By Primary Care Physician Villa Harris MD HPI Patient seen but was sleeping and unarousable. Known to be in soft restraints. Discussed case with the nurse and discovered patient had been aggressive towards staff members. Haldol had been tried but was not working. Patient placed on low dose Seroquel and given Ativan. These medicines are apparently working well to keep patient calm and nonaggressive. Review of Systems ROS Limitations: Clinical Condition Past Family Social History Coded Allergies: No Known Allergies (Unverified , 01/11/17) Active Scripts Nitrofurantoin Monohydrate Macrocrystals (Macrobid)100 Mg Ioj241 Mg PO BID 7 Days Prov:Rosio Jones MD 01/07/17 Reported Medications Quetiapine (Seroquel)25 Mg Tab25 Mg PO DAILY #30 TAB Ref 0 01/11/17 Hydrocodone-Acetaminophen ([place])7.5-325 mg Tab1 Tab PO Q4H PRN (PAIN) Ref 0 01/11/17 Amoxicillin-Clavulanate (Augmentin)500-125 mg Qff399 Mg PO DAILY Ref 0 01/11/17 Albuterol Neb 2.5 Mg/0.5 Ml Neb2.5 Mg NEB Q6HR NEB Note: The Albuterol Sulfate Inhalation Solution is concentrated and must be diluted. Read complete instructions carefully before using. 12/31/16 Guaifenesin ER 12 HR (Mucinex ER 12 HR)600 Mg Iffmo456 Mg PO BID Ref 0 12/31/16 Clopidogrel (Plavix)75 Mg Tab75 Mg PO DAILY #30 TAB Ref 0 12/31/16 Lorazepam 0.5 Mg Tab0.5 Mg PO Q8H PRN (ANXIETY) Ref 0 12/17/16 Potassium Chloride Microencaps 10 Meq Tab10 Meq PO DAILY #30 TAB Ref 0 12/17/16 Trazodone 50 Mg Tab25 Mg PO HS #30 TAB Ref 0 09/22/16 Tamsulosin 0.4 Mg Cap0.4 Mg PO HS #30 CAP Ref 0 09/22/16 Sennosides (Senna)8.6 Mg Tab8.6 Mg PO HS Ref 0 09/22/16 Furosemide 40 Mg Tab40 Mg PO BID #60 TAB Ref 0 09/22/16 Finasteride 5 Mg Tab5 Mg PO DAILY #30 TAB Ref 0 Do not crush. 09/22/16 Docusate Sodium 100 Mg Nus952 Mg PO BID #60 CAP Ref 0 09/22/16 Diltiazem 120 Mg Cph101 Mg PO DAILY #120 TAB Ref 0 09/22/16 Acetaminophen (Tylenol)325 Mg Rzy660 Mg PO QID PRN (PAIN 1-10 AND/OR FEVER >101F ) Ref 0 09/22/16 Loperamide Liq 1 Mg/5 Ml Liq4 Mg PO DIRECTED PRN (DIARRHEA) #1 BOTTLE Ref 0 2 mg (10 mL) after each loose stool. Not to exceed 16 mg (80 mL) per day. 09/22/16 Sodium Phosphates Rectal (Fleet Enema Rectal)7-19 Gm/118 Ml Oybb013 Ml RECTAL DAILY PRN (CONSTIPATION) Ref 0 09/22/16 Bisacodyl Enema (Fleet Bisacodyl Enema)10 Mg/37 Ml Enem37 Ml RECTAL DAILY PRN ( CONSTIPATION) Ref 0 09/22/16 Loperamide 2 Mg Cap2 Mg PO DIRECTED PRN (DIARRHEA) Ref 0 One capsule after each loose stool. Not to exceed 8 capsules per day. 09/22/16 Magnesium Hydroxide Liq (Milk of Magnesia Liq)400 Mg/5 Ml Susp30 Ml PO Q6H PRN ( CONSTIPATION) #1 BOTTLE Ref 0 09/22/16 Btbppret-Kcplsqznh-Jisjawugxph Liq (Maalox Advanced Maximum Strength Liq)400-400 -40 Mg/5 Ml Susp30 Ml PO QID Ref 0 Take between meals or as directed. Shake well. Maximum 60 ml/24 hrs. 09/22/16 Discontinued Reported Medications Dextromethorphan-Guaifenesin Liq (Mucus Relief DM Max Liq)20-400 Mg/20 Ml Liq20 Ml PO BID PRN (COUGH) #120 ML Ref 0 01/11/17 Quetiapine 25 Mg Tab25 Mg PO HS #30 TAB Ref 0 09/22/16 Quetiapine 25 Mg Tab12.5 Mg PO DAILY #60 TAB Ref 0 09/22/16 Current Medications Medications (Trade) Dose Ordered Sig/Kiarra Route Start Time Stop Time Status Last Admin (NS Flush) 2 ml UNSCH PRN FLUSH 01/11/17 06:30 (NS Flush) 2 ml BID FLUSH 01/11/17 09:00 01/13/17 07:41 (Lovenox Inj) 40 mg Q24H SQ 01/11/17 09:00 01/13/17 07:40 Naloxone HCl 0.4 mg 0.4 mg UNSCH PRN IV 01/11/17 06:30 (D5-1/2 NS + KCl 10 Meq Inj) 1,000 ml @ 125 mls/hr Q8H IV 01/11/17 08:00 01/13/17 01:34 (D50w (Vial) Inj) 25 ml UNSCH PRN IV PUSH 01/11/17 07:45 01/13/17 11:31 (Glucagon Inj) 1 mg UNSCH PRN OTHER 01/11/17 07:45 (Plavix) 75 mg DAILY PO 01/11/17 09:00 Hold (Colace) 100 mg BID PO 01/11/17 09:00 01/12/17 21:29 (Proscar) 5 mg DAILY PO 01/11/17 09:00 (Lasix) 40 mg BID PO 01/11/17 09:00 Hold (Ativan) 0.5 mg Q8H PRN PO 01/11/17 07:45 01/12/17 21:29 (SEROquel) 25 mg DAILY PO 01/11/17 09:00 01/13/17 09:00 (Flomax) 0.4 mg HS PO 01/11/17 21:00 01/12/17 21:29 (Desyrel) 25 mg HS PO 01/11/17 21:00 01/12/17 21:29 (Pill Splitter) 1 ea UNSCH PRN OTHER 01/11/17 08:15 (Haldol Inj) 1 mg Q6H PRN IM 01/11/17 11:15 (Cardizem) 30 mg QID PO 01/12/17 18:00 01/13/17 09:00 Physical Exam Vital Signs Vital Signs Date Time Temp Pulse Resp B/P Pulse Ox O2 Delivery O2 Flow Rate FiO2 01/13/17 08:00 97.3 105 20 118/81 94 01/11/17 17:55 Nasal Cannula 2.00 I/O 01/12/17 01/12/17 01/13/17 08:00 16:00 00:00 Intake Total 824 ml 100 ml 1968 ml Output Total 800 ml 200 ml 1300 ml Balance 24 ml -100 ml 668 ml Mental Status Examination Speech: Unremarkable Orientation: Person Memory: Impaired (describe) Thought Process: Goal Directed, Other Thought Content: Other Hallucination Type: None Attention and Concentration: Easily Distracted Suicidal Ideation: No Previous Suicide Attempts: No Homicidal Ideation: No Previous Homicide Attempts: No Insight: Poor Judgement: Unrealistic Affect: Anxious Affect if Inappropriate: Labile Mood: Other Motor Activity: Abnormal gait-specify Assessment & Plan Problem List: (1) Dementia with behavioral disturbance Assessment & Plan: Recommend you continue to provide patient with low dose Seroquel and Ativan as currently being prescribed. 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
[2017-01-13] MEDS ORDERED: DILTIAZEM HCL 25 MG/5 ML VIAL IV ONE (19:30)
[2017-01-13] MEDS: traZODone HCL 50 MG TAB PO SCH (21:00)
[2017-01-13] MEDS: TAMSULOSIN HCL 0.4 MG CAP PO SCH (21:00)
--- NOTE | 2017-01-13 21:17 | RADRPT ---
EXAM DATE/TIME: 01/13/2017 20:53 [place] COMPARISON: CHEST SINGLE AP, January 11, 2017, 6:14. INDICATIONS : Shortness of breath, altered mental status. MEDICAL HISTORY : Hypertension. SURGICAL HISTORY : None. ENCOUNTER: Subsequent ACUITY: 4 - 6 days PAIN SCORE: Non-responsive. LOCATION: Bilateral chest FINDINGS: A single view of the chest demonstrates marked cardiomegaly with bibasilar densities and increased pu lmonary vascularity. Small bilateral pleural effusions. Osseous structures are intact. CONCLUSION: 1. Bibasilar densities and small pleural effusions. 2. Cardiomegaly with increased pulmonary vascularity, likely CHF. Alexx Mcnair MD on January 13, 2017 at 21:15 Board Certified Radiologist. This report was verified electronically.
[2017-01-13] MEDS ORDERED: FUROSEMIDE 20 MG/2 ML VIAL IV PUSH ONE (21:45)
[2017-01-13] MEDS: DEXT 5%-NACL 0.45% 1000 ML INJ 1,000 ML IV SCH (21:45)
[2017-01-14] VITALS (7 sets, daily range): BP systolic 107–148; BP diastolic 66–91; PULSE 84–119; RESP 18–24; TEMP 95.5–97.3; O2SAT 95–100
[2017-01-14] MEDS: INSULIN ASPART SUPPLEMENTAL SCALE SQ SCH ×4 (05:47→21:00)
[2017-01-14 06:50] LABS: HEMATOCRIT 40.2 % (39.0-51.0); MEAN CELL VOLUME 84.1 FL (80.0-100.0); MEAN CORPUSCULAR HEMOGLOBIN 27.8 PG (27.0-34.0); MEAN CORPUSCULAR HGB CONC 33.1 % (32.0-36.0); PLATELET COUNT 166 TH/MM3 (150-450); RED BLOOD COUNT 4.77 MIL/MM3 (4.50-5.90); RED CELL DISTRIBUTION WIDTH 15.1 % (11.6-17.2); REVIEW FLAG FINAL; WHITE BLOOD COUNT 8.4 TH/MM3 (4.0-11.0)
[2017-01-14 07:20] LABS: BICARBONATE 29.5 MEQ/L (21.0-32.0); POTASSIUM 3.6 MEQ/L (3.5-5.1)
--- NOTE | 2017-01-14 08:12 | HHI.PR ---
Subjective Remarks This is a pleasant 89 y/o Male who resides in a [facility] was brought in to ER with agitation and aggressive he has Advanced Dementia, he has Recurrent falls, diagnosed with UTI but his Urine culture is negative, has recent TURP for BPH last Month, Claros cath inserted in ER, has Atrial Fibrillation, CHF b history, CAD, Hypertension. Severe Dementia patient seen in his bedroom, discussed with nurse and awaiting final by Palliative care for discharge to Hospice. the patient has poor short term prognosis. Objective Vital Signs Date Time Temp Pulse Resp B/P Pulse Ox O2 Delivery O2 Flow Rate FiO2 01/14/17 04:16 95.5 84 24 107/70 99 01/14/17 00:02 95.8 92 18 107/66 100 01/13/17 22:15 95.8 95 26 120/84 100 01/13/17 22:00 96.0 96 24 120/82 100 01/13/17 21:35 96.0 94 20 123/85 100 01/13/17 20:55 95.8 88 22 121/83 100 01/13/17 20:24 95.7 87 22 134/85 98 01/13/17 20:13 94.6 95 20 114/75 100 01/13/17 16:00 96.0 82 20 130/83 97 01/13/17 12:00 95.8 80 18 114/74 100 I/O 01/13/17 01/13/17 01/13/17 01/14/17 01/14/17 01/14/17 07:00 15:00 23:00 07:00 15:00 23:00 Intake Total 1149 ml 1753 ml 349 ml Output Total 400 ml 2150 ml Balance 1149 ml 1353 ml -1801 ml Intake Oral 0 ml IV Total 1149 ml 1753 ml 349 ml Output Urine Total 400 ml 2150 ml Bladder Scan Volume Amount 244 ml 500 ml # Bowel Movements 2 1 Result Diagram: 01/14/1745 01/14/17544 Imaging Last Impressions Chest X-Ray 01/13/172029 Signed Impressions: Service Date/Time: Friday, January 13, 2017 20:53 - CONCLUSION: 1. Bibasilar densities and small pleural effusions. 2. Cardiomegaly with increased pulmonary vascularity, likely CHF. Alexx Mcnair MD Head CT 01/11/17 [id number] Signed Impressions: Service Date/Time: Wednesday, January 11, 2017 05:05 - CONCLUSION: No acute findings. Improved maxillary and ethmoid sinus disease from January 06. Atul Esparza MD Procedures No procedures performed to the patient. Other Results Laboratory Tests Test 01/11/17 01/11/17 01/12/17 01/12/17 04:26 04:30 05:33 11:05 Prothrombin Time 15.5 SEC Prothromb Time International 1.4 RATIO Ratio Urine Color YELLOW Urine Turbidity HAZY Urine pH 5.5 Urine Specific [place] 1.022 Urine Protein 100 mg/dL Urine Glucose (UA) NEG mg/dL Urine Ketones NEG mg/dL Urine Occult Blood MOD Urine Nitrite NEG Urine Bilirubin NEG Urine Urobilinogen LESS THAN 2.0 MG/DL Urine Leukocyte Esterase LARGE Urine RBC 97 /hpf Urine WBC /hpf Urine WBC Clumps FEW Urine Squamous Epithelial <1 /hpf Cells Urine Bacteria RARE /hpf Urine Hyaline Casts 9 /lpf Urine Granular Casts 2 /lpf Urine Mucus FEW /lpf Microscopic Urinalysis Comment CATH-CULTURE IND Total Bilirubin 2.3 MG/DL Aspartate Amino Transf 36 U/L (AST/SGOT) Alanine Aminotransferase 21 U/L (ALT/SGPT) Alkaline Phosphatase 81 U/L Total Creatine Kinase 297 U/L Troponin I 0.02 NG/ML Total Protein 6.5 GM/DL Albumin 3.2 GM/DL Thyroid Stimulating Hormone 3.980 uIU/ML 3rd Gen Ammonia 32 MCMOL/L Neutrophils (%) (Auto) 80.9 % Lymphocytes (%) (Auto) 6.8 % Monocytes (%) (Auto) 12.1 % Eosinophils (%) (Auto) 0.0 % Basophils (%) (Auto) 0.2 % Neutrophils # (Auto) 6.3 TH/MM3 Lymphocytes # (Auto) 0.5 TH/MM3 Monocytes # (Auto) 0.9 TH/MM3 Eosinophils # (Auto) 0.0 TH/MM3 Basophils # (Auto) 0.0 TH/MM3 CBC Comment DIFF FINAL Differential Comment Random Vancomycin Level 4.7 COMMENT Lactic Acid Level 3.3 mmol/L Test 01/14/17 05:45 White Blood Count 8.4 TH/MM3 Red Blood Count 4.77 MIL/MM3 Hemoglobin 13.3 GM/DL Hematocrit 40.2 % Mean Corpuscular Volume 84.1 FL Mean Corpuscular Hemoglobin 27.8 PG Mean Corpuscular Hemoglobin 33.1 % Concent Red Cell Distribution Width 15.1 % Platelet Count 166 TH/MM3 Mean Platelet Volume 8.6 FL Sodium Level 146 MEQ/L Potassium Level 3.6 MEQ/L Chloride Level 108 MEQ/L Carbon Dioxide Level 29.5 MEQ/L Anion Gap 9 MEQ/L Blood Urea Nitrogen 17 MG/DL Creatinine 0.71 MG/DL Estimat Glomerular Filtration 104 ML/MIN Rate Random Glucose 74 MG/DL Calcium Level 8.3 MG/DL Objective Remarks GENERAL: Elderly male, very agitated and trashing in the bed. SKIN: Bilateral forearm with superficial lacerations. HEAD: Atraumatic. Normocephalic. EYES: Pupils equal round and reactive. ENT: Nose drainage. Airway patent. NECK: Trachea midline. No JVD or lymphadenopathy. Supple, nontender, no meningeal signs. CARDIOVASCULAR: Heart rate in the 110s and irregular rhythm without murmurs, gallops, or rubs. RESPIRATORY: Clear to auscultation. Breath sounds equal bilaterally. No wheezes , rales, or rhonchi. GASTROINTESTINAL: Abdomen soft, nondistended. No guarding. MUSCULOSKELETAL: Extremities without clubbing, cyanosis, or edema. NEUROLOGICAL: Awake and alert. Very confused and agitated. Nonsensical speech. No focal weakness. Moves all extremities. Medications and IVs Current Medications Medications (Trade) Dose Ordered Sig/Kiarra Route Start Time Stop Time Status Last Admin (NS Flush) 2 ml UNSCH PRN FLUSH 01/11/17 06:30 (NS Flush) 2 ml BID FLUSH 01/11/17 09:00 01/13/17 20:48 (Lovenox Inj) 40 mg Q24H SQ 01/11/17 09:00 01/13/17 07:40 (Narcan Inj) 0.4 mg UNSCH PRN IV 01/11/17 06:30 (D50w (Vial) Inj) 25 ml UNSCH PRN IV PUSH 01/11/17 07:45 01/13/17 11:31 (Glucagon Inj) 1 mg UNSCH PRN OTHER 01/11/17 07:45 (Plavix) 75 mg DAILY PO 01/11/17 09:00 Hold (Colace) 100 mg BID PO 01/11/17 09:00 01/12/17 21:29 (Proscar) 5 mg DAILY PO 01/11/17 09:00 (Lasix) 40 mg BID PO 01/11/17 09:00 Hold (SEROquel) 25 mg DAILY PO 01/11/17 09:00 01/13/17 09:00 (Flomax) 0.4 mg HS PO 01/11/17 21:00 01/12/17 21:29 (Desyrel) 25 mg HS PO 01/11/17 21:00 01/12/17 21:29 (Pill Splitter) 1 ea UNSCH PRN OTHER 01/11/17 08:15 (Haldol Inj) 1 mg Q6H PRN IM 01/11/17 11:15 (Cardizem) 30 mg QID PO 01/12/17 18:00 01/13/17 09:00 Lorazepam 0.5 mg 0.5 mg Q8H PRN IV PUSH 01/13/17 19:30 (D5W-1/2 NS 1000 ml Inj) 1,000 ml @ 50 mls/hr Q20H IV 01/13/17 21:45 01/13/17 21:45 A/P Assessment and Plan Acute encephalopathy: At baseline the patient is reportedly calm but has had periods of aggression lately. Probable Dementia with behavioral disturbances. Suspect progression of his disease with worsening behavioral symptoms. Patient had an abnormal urinalysis but his urine cultures negative. -Psychiatry is consulted to help with behavioral symptoms. Appreciate palliative care following. Abnormal urinalysis and elevated lactic acid: Patient started on Zosyn and vancomycin on admission. So far all cultures are negative. There are no other signs or symptoms of an infectious process. - Will discontinue antibiotics for now and monitor off antibiotics. Hematuria probably secondary to traumatic Claros. Patient gets more agitated with Claros and reportedly was tugging at it. He does have a history of BPH but has been doing well since TURP surgery. -Claros was discontinued. Hematuria resolved. Continue to monitor output. Atrial fibrillation: Continue Cardizem. Switch to immediate release Cardizem as long acing cannot be crushed. Not on anticoagulant outpatient presumably due to high fall risk. Continue home medications for his chronic conditions as indicated. Speech therapy for swallow eval. GI prophylaxis: Stool softener PRN constipation. DVT PPx: Lovenox Discharge Planning Patient with severe behavioral symptoms probably related to advanced/end stage dementia. No infectious source. Antibiotics discontinued today, monitor off antibiotics. Palliative care following. May be a candidate for hospice services. Sylvester Yañez MD Jan 14, 2017 08:12
[2017-01-14] MEDS: FINASTERIDE 5 MG TAB PO SCH (09:00)
[2017-01-14] MEDS: DOCUSATE SODIUM 100 MG CAP PO SCH ×2 (09:00→21:00)
[2017-01-14] MEDS: QUEtiapine FUMARATE 25 MG TAB PO SCH (09:00)
[2017-01-14] MEDS: SODIUM CHLORIDE 0.9% FLUSH 5 ML FLUSH FLUSH SCH ×3 (09:00→21:00)
[2017-01-14] MEDS: DILTIAZEM HCL 30 MG TAB PO SCH ×4 (09:00→21:00)
[2017-01-14] MEDS ORDERED: PHARMACY ORDERED LAB XX ONE (10:45)
--- NOTE | 2017-01-14 11:19 | HHI.HCPN ---
Reason for visit a. To assist with evaluation and management of symptoms including: Agitation , confusion b. To assist medical decision maker(s) with: better understanding of current medical conditions; weighing benefits/burdens of medical treatment options; making medical treatment decisions. . (Radha Bai) Subjective/Interval History Mr. Stacy is an 89-year-old male who presented to [facility] ED on 01/11/17 for evaluation of altered mental status, delirium, combativeness and oxygen saturations in the mid 80s on 3 L of oxygen via nasal cannula. Past medical history is significant for advanced dementia, recurrent falls, UTIs, BPH s/p TURP last month, CAD, CHF, HTN and atrial fibrillation. Seen and assessed today in room 1418. Eyes closed with face relaxed. Arouses quite easily to verbal stimuli. Patient is confused, speech is non-sensical. Patient has had recent episodes of agitation and aggression likely secondary to disease progressionadvanced dementia with worsening behavioral symptoms. He remains in soft restraints. Haldol was not effective in managing symptoms. Patient is now on low-dose scheduled Seroquel and PRN Ativan which appears to be effective, symptoms have improved. Psychiatry is following. Patient was diagnosed with UTI but cultures have been negative 2 days. Blood cultures showing no growth in 2 days. Afebrile. WBC normal. Prophylactic antibiotics have been discontinued. Heart rate intermittently elevated at 80s-110s. Patient remains on Cardizem secondary to atrial fibrillation. He is not on an anticoagulant due to his frequent falls. Patient failed swallow evaluation on 01/13/17 and remains NPO at this time. Patient's living will states in the event that he has an incurable/irreversible condition, if he is in a persistent vegetative state, or if the medical risks and physical burdens of treatment would outweigh the expected medical benefits he does NOT want artificial nutrition/hydration. Spoke to patient's friend/HCS, Heather, who states she intends to respect the patient's written wishes and would not move forward with PEG tube placement if indicated. . Family/friend interactions Spoke to patient's friend/HCS, Heather, to provide an update on the patient's clinical condition. Heather is traveling to [place] and will remain out of state for the next 12 weeks. She can be reached at phone# [phone]. ( Radha Bai) Advance Directives Living Will: Copy in medical record Health Care Surrogate: Copy in medical record Durable Power of Stock Saw Operator: Copy in medical record (Radha Bai) Advance Directive Specifics Date completed: July 26, 2005 . Health Care Surrogate(s): Heather Temple is the designated health care surrogate. Elvis Villarreal is designated as the alternate health care surrogate. . Documented care wishes: Living will was completed on July 26, 2005. Patient states that he is qualified to be certified for hospice care, he wishes to be certified for hospice care and to receive palliative care and management of his illness. He does not want his life to be prolonged if he has an incurable/irreversible condition, if he is in a vegetative state, is the medical risks and physical burdens of treatment outweigh the expected medical benefits. In those circumstances the patient does not want artificial nutrition or artificial hydration. If the patient were to have an incurable/irreversible condition that would result in his within a relatively short period of time, he does not want pharmacological treatments for measures to be administered to him if he is diagnosed with pneumonia (or a similar condition) as a secondary condition. . (Radha Bai) Objective Vital Signs Date Time Temp Pulse Resp B/P Pulse Ox O2 Delivery O2 Flow Rate FiO2 01/14/17 08:03 96.1 110 18 148/91 95 01/14/17 04:16 95.5 84 24 107/70 99 01/14/17 00:02 95.8 92 18 107/66 100 01/13/17 22:15 95.8 95 26 120/84 100 01/13/17 22:00 96.0 96 24 120/82 100 01/13/17 21:35 96.0 94 20 123/85 100 01/13/17 20:55 95.8 88 22 121/83 100 01/13/17 20:24 95.7 87 22 134/85 98 01/13/17 20:13 94.6 95 20 114/75 100 01/13/17 16:00 96.0 82 20 130/83 97 01/13/17 12:00 95.8 80 18 114/74 100 Intake & Output 01/14/17 01/14/17 07:00 19:00 Intake Total 2102 ml Output Total 2550 ml Balance -448 ml Intake Oral 0 ml IV Total 2102 ml Output Urine Total 2550 ml Bladder Scan Volume Amount 500 ml # Bowel Movements 1 . Physical Exam CONSTITUTIONAL/GENERAL: This is a frail, malnourished elderly male patient currently agitated. TUBES/LINES/DRAINS: PIV SKIN: Tegaderm 2/2 skin tears on hands bilaterally. Ecchymoses on upper extremities.. Skin temperature appropriate. Not diaphoretic. HEAD: Atraumatic. Normocephalic. EYES: PERRLA. ENT: [place]. Nose without bleeding or purulent drainage. NECK: Trachea midline. Supple, nontender. No palpable thyroid enlargement or nodularity. CARDIOVASCULAR: Heart rate in the 80s - 110s, irregular. No murmurs, gallops or rubs. RESPIRATORY/CHEST: Symmetric, unlabored respirations. Scattered rhonchi GASTROINTESTINAL: Abdomen soft, non-tender, nondistended. GENITOURINARY: Without palpable bladder distension. MUSCULOSKELETAL: Extremities without clubbing, cyanosis, or edema. LYMPHATICS: No palpable cervical or supraclavicular adenopathy. NEUROLOGICAL: Patient is confused, agitated. Speech is nonsensical, garbled at times. Patient does not answer questions appropriately. Does not follow commands. Remains in soft restraints PSYCHIATRIC: Patient is intermittently agitated, confused. . (Radha Bai) Diagnostic Tests Laboratory Laboratory Tests Test 01/12/17 01/12/17 01/12/17 01/14/17 02:44 05:33 11:05 05:45 Lactic Acid Level 3.0 mmol/L 3.4 mmol/L 3.3 mmol/L (0.4-2.0) (0.4-2.0) (0.4-2.0) White Blood Count 7.8 TH/MM3 8.4 TH/MM3 (4.0-11.0) (4.0-11.0) Red Blood Count 4.15 MIL/MM3 4.77 MIL/MM3 (4.50-5.90) (4.50-5.90) Hemoglobin 11.6 GM/DL 13.3 GM/DL (13.0-17.0) (13.0-17.0) Hematocrit 35.1 % 40.2 % (39.0-51.0) (39.0-51.0) Mean Corpuscular Volume 84.6 FL 84.1 FL (80.0-100.0) (80.0-100.0) Mean Corpuscular Hemoglobin 27.8 PG 27.8 PG (27.0-34.0) (27.0-34.0) Mean Corpuscular Hemoglobin 32.9 % 33.1 % Concent (32.0-36.0) (32.0-36.0) Red Cell Distribution Width 15.0 % 15.1 % (11.6-17.2) (11.6-17.2) Platelet Count 146 TH/MM3 166 TH/MM3 (150-450) (150-450) Mean Platelet Volume 8.2 FL 8.6 FL (7.0-11.0) (7.0-11.0) Neutrophils (%) (Auto) 80.9 % (16.0-70.0) Lymphocytes (%) (Auto) 6.8 % (9.0-44.0) Monocytes (%) (Auto) 12.1 % (0.0-8.0) Eosinophils (%) (Auto) 0.0 % (0.0-4.0) Basophils (%) (Auto) 0.2 % (0.0-2.0) Neutrophils # (Auto) 6.3 TH/MM3 (1.8-7.7) Lymphocytes # (Auto) 0.5 TH/MM3 (1.0-4.8) Monocytes # (Auto) 0.9 TH/MM3 (0-0.9) Eosinophils # (Auto) 0.0 TH/MM3 (0-0.4) Basophils # (Auto) 0.0 TH/MM3 (0-0.2) CBC Comment DIFF FINAL Differential Comment Sodium Level 144 MEQ/L 146 MEQ/L (136-145) (136-145) Potassium Level 3.7 MEQ/L 3.6 MEQ/L (3.5-5.1) (3.5-5.1) Chloride Level 110 MEQ/L 108 MEQ/L (98-107) (98-107) Carbon Dioxide Level 22.9 MEQ/L 29.5 MEQ/L (21.0-32.0) (21.0-32.0) Anion Gap 11 MEQ/L (5-15) 9 MEQ/L (5-15) Blood Urea Nitrogen 35 MG/DL (7-18) 17 MG/DL (7-18) Creatinine 1.10 MG/DL 0.71 MG/DL (0.60-1.30) (0.60-1.30) Estimat Glomerular Filtration 63 ML/MIN (>89) 104 ML/MIN Rate (>89) Random Glucose 124 MG/DL 74 MG/DL (74-106) (74-106) Calcium Level 7.8 MG/DL 8.3 MG/DL (8.5-10.1) (8.5-10.1) Random Vancomycin Level 4.7 COMMENT Magnesium Level 2.1 MG/DL (1.5-2.5) . (Radha Bai) Result Diagram: 01/14/17 0545 01/14/1745 Microbiology Microbiology Date/Time Procedure Status Source Growth 01/11/17 04:35 Aerobic Blood Culture - Preliminary Resulted Blood Peripheral NO GROWTH IN 2 DAYS 01/11/17 04:35 Anaerobic Blood Culture - Preliminary Resulted Blood Peripheral NO GROWTH IN 2 DAYS 01/11/17 04:26 Urine Culture - Final Complete Urine Catheterized Urine NO GROWTH IN 48 HOURS. . Imaging Last 72 hours Impressions Chest X-Ray 01/13/172029 Signed Impressions: Service Date/Time: Friday, January 13, 2017 20:53 - CONCLUSION: 1. Bibasilar densities and small pleural effusions. 2. Cardiomegaly with increased pulmonary vascularity, likely CHF. Alexx Mcnair MD . (Radha Bai) Assessment and Plan Disease Oriented Problem List: (1) Dementia (2) BPH (benign prostatic hyperplasia) (3) Atrial fibrillation (4) Dementia with behavioral disturbance (5) Hypertension (6) UTI (urinary tract infection) Comment: Patient diagnosed with UTI per urinalysis. However, cultures remain negative. Antibiotics were discontinued for the time being. . Symptom Scale: (1) Agitation Comment: Patient is currently on low-dose scheduled Seroquel and PRN lorazepam. Psychiatry was consultedno further recommendations were made. . (2) Confusion 0-10 Scale: Unable to quantify Pertinent Non-Medical Issues Psychosocial: Pending family meeting. Spiritual: Zoroastrianism wilmer Legal: Health care surrogate designation form completed and available in EMR. Ethical issues impacting care: No known ethical issues impacting care at this time. . Important Contacts Heather Temple, Surrogate/POA: [phone] Shaun Villarreal, alternate [facility]: [phone] . . Prognosis Patient is an 89-year-old male who has been hospitalized 3 times since August. He has multiple comorbid conditions for which he is reportedly noncompliant. The patient was transferred to a senior living after being discharged from [facility] and 08/2016 because it was no longer safe for him to live alone. Patient has progressive end-stage dementia with behaviors; FAST 7D-7E. He has been unable to pass repeated swallowing evaluations and remains NPO. Written advanced directives are in place, completed 07/26/2005. Per the patient' s living will, in the event he has an end-stage condition he does not want artificial nutrition/hydration or or any other procedures/medications that would only serve to prolong the process of dying. He instead requests to be kept comfortable stating he is appropriate for hospice services - he would request hospice services for symptom management and end-of-life care. Overall prognosis is poor. Code Status: No Code Plan * NO CODE/DNR * Decision-making: Patient is not capacitated to participate and clarification of medical treatment goals. It is unknown if the patient will regain capacity. Baseline unknown. However, the patient has advanced dementia which is an indicator that the patient will likely not regain this capacity. Heather Temple is the designated health care surrogate/POA. Shaun Villarreal is designated as the alternate health care surrogate. * Goals: Goals remain aggressive up to the point of cardiopulmonary resuscitation * [facility]/Heather Lopez is traveling to [place] and will remain out of state for the next 12 weeks. She can be reached at phone# [phone]. * Symptom managementagitation: Psychiatry is following. Patient is currently on low-dose Seroquel and PRN Lorazepam which has been effectively decreasing the frequency and intensity of patient's symptoms. * Patient failed swallow evaluation on 01/14/17. Per patient's living will states in the event that he has an incurable/irreversible condition, if he is in a persistent vegetative state, or if the medical risks and physical burdens of treatment would outweigh the expected medical benefits he does NOT want artificial nutrition/hydration. Spoke to patient's friend/HCS, Heather, who states she intends to respect the patient's written wishes and would not move forward with PEG tube placement if indicated. * Phone call placed to patient's health care surrogate to provide an update on patient's clinical condition. She would like the patient to have another day or 2 before thinking about transitioning to comfort focused care. * Palliative care will continue to follow this patient throughout his hospitalization to build rapport, assist with symptom management and goal clarification. . (Radha Bai) Attestation To help prompt me to consider important information that might be impacting today's encounter and assessment, information from prior notes written by myself or my colleagues may have been "brought forward" into today's note. My signature on this note, however, is an attestation that I personally performed the exam, history, and/or decision-making noted today, and, unless otherwise indicated, the interactions with patient, family, and staff as well as the review of records all occurred today. I also attest that the listed assessment and stated plan reflect my best clinical judgment today based on the combination of historical information, prior notes, and today's exam/ interactions. When time spent is documented, it refers only to time spent today by the signer, or if indicated, combined time spent today by collaborating physician/nurse practitioner. . (Radha Bai) Collaborating MD Comments Chart reviewed. Cased discussed with palliative care OBSERVER ELECTR[employer]OSPECTING. Above OBSERVER ELECTR[employer] PROSPECTING note reviewed and I concur. . (Jorge Johnson MD) Radha Bai Jan 14, 2017 11:19 Jorge Johnson MD March 25, 2017 14:26
[2017-01-14] MEDS: ENOXAPARIN SODIUM 40 MG/0.4 ML SYRINGE SQ SCH (11:22)
[2017-01-14] MEDS: DEXTROSE 50% IN WATER 50 ML VIAL(D50) IV PUSH PRN ×2 (18:44→23:15)
[2017-01-14] MEDS: DEXT 5%-NACL 0.45% 1000 ML INJ 1,000 ML IV SCH (18:46)
[2017-01-14] MEDS: traZODone HCL 50 MG TAB PO SCH (21:00)
[2017-01-14] MEDS: TAMSULOSIN HCL 0.4 MG CAP PO SCH (21:00)
[2017-01-14] MEDS ORDERED: FUROSEMIDE 20 MG/2 ML VIAL IV PUSH ONE (23:30)
[2017-01-15] VITALS (7 sets, daily range): BP systolic 122–137; BP diastolic 57–87; PULSE 61–136; RESP 18–20; TEMP 97.2–98.7; O2SAT 97–100
[2017-01-15] MEDS: DEXTROSE 50% IN WATER 50 ML VIAL(D50) IV PUSH PRN ×2 (02:35→06:10)
[2017-01-15] MEDS: LORazepam 2 MG/ML VIAL IV PUSH PRN ×2 (02:36→17:30)
--- NOTE | 2017-01-15 06:46 | RADRPT ---
EXAM DATE/TIME: 01/15/2017 06:26 [facility] COMPARISON: CHEST SINGLE AP, January 13, 2017, 20:53. INDICATIONS : Shortness of breath. MEDICAL HISTORY : Hypertension. SURGICAL HISTORY : None. ENCOUNTER: Subsequent ACUITY: 1 week PAIN SCORE: Non-responsive. LOCATION: Bilateral chest FINDINGS: Marked enlargement of the cardiac/pericardial silhouette, bilateral pleural effusions and basilar air space disease. Osseous structures are intact. CONCLUSION: No significant change has occurred. Michel Mixon MD on January 15, 2017 at 6:44 Board Certified Radiologist. This report was verified electronically.
--- NOTE | 2017-01-15 07:52 | HHI.PR ---
Subjective Remarks This is a pleasant 89 y/o Male who resides in a [facility] was brought in to ER with agitation and aggressive he has Advanced Dementia, he has Recurrent falls, diagnosed with UTI but his Urine culture is negative, has recent TURP for BPH last Month, Claros cath inserted in ER, has Atrial Fibrillation, CHF b history, CAD, Hypertension. Severe Dementia Patient seen in the room with nurse Miss Aguilera also present PUBLIC [employer] F[employer]IES RENTAL MANAGER Miss Romero from Palliative care, the patient remains Lethargic, not following commands. he is NPO and has Living Will the patient does not want artificial nutrition or artificial hydration. his IV fluids were removed, after sustained a conversation between PUBLIC EVENTS FACIL[employer]IES RENTAL MANAGER Miss Romero and his Health Surrogate Heather Temple she accepted for Hospice will go for Hospice care when she is able to sign documents Objective Vital Signs Date Time Temp Pulse Resp B/P Pulse Ox O2 Delivery O2 Flow Rate FiO2 01/15/17 04:00 98.7 61 18 125/77 97 01/15/17 02:23 97 98 01/15/17 00:22 97 Venturi Mask 6.00 50 01/15/17 00:00 97.2 136 18 137/87 97 01/14/17 20:00 119 01/14/17 20:00 97.3 104 18 138/85 95 01/14/17 16:05 96.9 108 18 146/86 95 01/14/17 12:07 96.8 106 18 146/88 96 01/14/17 08:03 96.1 110 18 148/91 95 01/14/17 07:55 99 I/O 01/14/17 01/14/17 01/14/17 01/15/17 01/15/17 01/15/17 07:00 15:00 23:00 07:00 15:00 23:00 Intake Total 349 ml 2 ml 0 ml 0 ml Output Total 2150 ml 175 ml 1000 ml Balance -1801 ml -173 ml 0 ml -1000 ml Intake Oral 0 ml 0 ml 0 ml IV Total 349 ml 2 ml Output Urine Total 2150 ml 175 ml 1000 ml Bladder Scan Volume Amount 500 ml # Voids 5 0 # Bowel Movements 3 0 1 Result Diagram: 01/14/17 0545 01/14/17 0545 Imaging Last Impressions Chest X-Ray 01/15/17 0000 Signed Impressions: Service Date/Time: Sunday, January 15, 2017 06:26 - CONCLUSION: No significant change has occurred. Michel Mixon MD Head CT 01/11/17 0425 Signed Impressions: Service Date/Time: Wednesday, January 11, 2017 05:05 - CONCLUSION: No acute findings. Improved maxillary and ethmoid sinus disease from January 06. Atul Esparza MD Other Results Laboratory Tests Test 01/11/17 01/11/17 01/12/17 01/12/17 04:26 04:30 05:33 11:05 Prothrombin Time 15.5 SEC Prothromb Time International 1.4 RATIO Ratio Urine Color YELLOW Urine Turbidity HAZY Urine pH 5.5 Urine Specific Summers 1.022 Urine Protein 100 mg/dL Urine Glucose (UA) NEG mg/dL Urine Ketones NEG mg/dL Urine Occult Blood MOD Urine Nitrite NEG Urine Bilirubin NEG Urine Urobilinogen LESS THAN 2.0 MG/DL Urine Leukocyte Esterase LARGE Urine RBC 97 /hpf Urine WBC /hpf Urine WBC Clumps FEW Urine Squamous Epithelial <1 /hpf Cells Urine Bacteria RARE /hpf Urine Hyaline Casts 9 /lpf Urine Granular Casts 2 /lpf Urine Mucus FEW /lpf Microscopic Urinalysis Comment CATH-CULTURE IND Total Bilirubin 2.3 MG/DL Aspartate Amino Transf 36 U/L (AST/SGOT) Alanine Aminotransferase 21 U/L (ALT/SGPT) Alkaline Phosphatase 81 U/L Total Creatine Kinase 297 U/L Troponin I 0.02 NG/ML Total Protein 6.5 GM/DL Albumin 3.2 GM/DL Thyroid Stimulating Hormone 3.980 uIU/ML 3rd Gen Ammonia 32 MCMOL/L Neutrophils (%) (Auto) 80.9 % Lymphocytes (%) (Auto) 6.8 % Monocytes (%) (Auto) 12.1 % Eosinophils (%) (Auto) 0.0 % Basophils (%) (Auto) 0.2 % Neutrophils # (Auto) 6.3 TH/MM3 Lymphocytes # (Auto) 0.5 TH/MM3 Monocytes # (Auto) 0.9 TH/MM3 Eosinophils # (Auto) 0.0 TH/MM3 Basophils # (Auto) 0.0 TH/MM3 CBC Comment DIFF FINAL Differential Comment Random Vancomycin Level 4.7 COMMENT Lactic Acid Level 3.3 mmol/L Test 01/14/17 05:45 White Blood Count 8.4 TH/MM3 Red Blood Count 4.77 MIL/MM3 Hemoglobin 13.3 GM/DL Hematocrit 40.2 % Mean Corpuscular Volume 84.1 FL Mean Corpuscular Hemoglobin 27.8 PG Mean Corpuscular Hemoglobin 33.1 % Concent Red Cell Distribution Width 15.1 % Platelet Count 166 TH/MM3 Mean Platelet Volume 8.6 FL Sodium Level 146 MEQ/L Potassium Level 3.6 MEQ/L Chloride Level 108 MEQ/L Carbon Dioxide Level 29.5 MEQ/L Anion Gap 9 MEQ/L Blood Urea Nitrogen 17 MG/DL Creatinine 0.71 MG/DL Estimat Glomerular Filtration 104 ML/MIN Rate Random Glucose 74 MG/DL Calcium Level 8.3 MG/DL Magnesium Level 2.1 MG/DL Objective Remarks GENERAL: Elderly male, very agitated and trashing in the bed. SKIN: Bilateral forearm with superficial lacerations. HEAD: Atraumatic. Normocephalic. EYES: Pupils equal round and reactive. ENT: Nose drainage. Airway patent. NECK: Trachea midline. No JVD or lymphadenopathy. Supple, nontender, no meningeal signs. CARDIOVASCULAR: Irregular rate and rhythm, tachycardia. RESPIRATORY: Clear to auscultation. Breath sounds equal bilaterally. No wheezes , rales, or rhonchi. GASTROINTESTINAL: Abdomen soft, nondistended. No guarding. MUSCULOSKELETAL: Extremities without clubbing, cyanosis, or edema. NEUROLOGICAL: Lethargic. Medications and IVs Current Medications Medications (Trade) Dose Ordered Sig/Kiarra Route Start Time Stop Time Status Last Admin (NS Flush) 2 ml UNSCH PRN FLUSH 01/11/17 06:30 (NS Flush) 2 ml BID FLUSH 01/11/17 09:00 01/13/17 20:48 (Lovenox Inj) 40 mg Q24H SQ 01/11/17 09:00 01/14/17 11:22 (Narcan Inj) 0.4 mg UNSCH PRN IV 01/11/17 06:30 (D50w (Vial) Inj) 25 ml UNSCH PRN IV PUSH 01/11/17 07:45 01/14/17 23:15 (Glucagon Inj) 1 mg UNSCH PRN OTHER 01/11/17 07:45 (Plavix) 75 mg DAILY PO 01/11/17 09:00 Hold (Colace) 100 mg BID PO 01/11/17 09:00 01/12/17 21:29 (Proscar) 5 mg DAILY PO 01/11/17 09:00 (Lasix) 40 mg BID PO 01/11/17 09:00 Hold (SEROquel) 25 mg DAILY PO 01/11/17 09:00 01/13/17 09:00 (Flomax) 0.4 mg HS PO 01/11/17 21:00 01/12/17 21:29 (Desyrel) 25 mg HS PO 01/11/17 21:00 01/12/17 21:29 (Pill Splitter) 1 ea UNSCH PRN OTHER 01/11/17 08:15 (Haldol Inj) 1 mg Q6H PRN IM 01/11/17 11:15 (Cardizem) 30 mg QID PO 01/12/17 18:00 01/13/17 09:00 (Ativan Inj) 0.5 mg Q8H PRN IV PUSH 01/13/17 19:30 01/15/17 02:36 (D50w (Vial) Inj) 50 ml Q1HR PRN IV PUSH 01/14/17 23:30 01/15/17 06:10 A/P Assessment and Plan 1. Acute encephalopathy: Probable Dementia with behavioral disturbances. Suspect progression of his disease with worsening behavioral symptoms. Patient had an abnormal urinalysis but his urine cultures negative. -Psychiatry is consulted to help with behavioral symptoms. Appreciate palliative care following. 2. Abnormal urinalysis and elevated lactic acid: Patient started on Zosyn and vancomycin on admission. So far all cultures are negative. There are no other signs or symptoms of an infectious process, following off antibiotics. 3. Hematuria probably secondary to traumatic Claros. removed Claros and improved. 4. Atrial fibrillation: Continue Cardizem. Continue home medications for his chronic conditions as indicated. Speech therapy for Swallow eval has Strict NPO, GI prophylaxis: Stool softener PRN constipation. DVT PPx: Lovenox Patient is going for Hospice as soon as signed documents by Health surrogate Code status DNR. Discharge Planning Patient actively dying, Poor short term prognosis, will go to Hospice as soon as signed documents by Health Care Surrogate. Sylvester Yañez MD Jan 15, 2017 07:52
[2017-01-15] MEDS: SODIUM CHLORIDE 0.9% FLUSH 5 ML FLUSH FLUSH SCH ×2 (08:44→20:10)
[2017-01-15] MEDS: ENOXAPARIN SODIUM 40 MG/0.4 ML SYRINGE SQ SCH (08:44)
[2017-01-15] MEDS: DOCUSATE SODIUM 100 MG CAP PO SCH ×2 (08:50→20:06)
[2017-01-15] MEDS: FINASTERIDE 5 MG TAB PO SCH (08:50)
[2017-01-15] MEDS: QUEtiapine FUMARATE 25 MG TAB PO SCH (08:50)
[2017-01-15] MEDS: DILTIAZEM HCL 30 MG TAB PO SCH ×4 (08:50→20:06)
--- NOTE | 2017-01-15 12:49 | HHI.HCPN ---
Reason for visit a. To assist with evaluation and management of symptoms including: Agitation , confusion b. To assist medical decision maker(s) with: better understanding of current medical conditions; weighing benefits/burdens of medical treatment options; making medical treatment decisions. . (Radha Bai) Subjective/Interval History Mr. Stacy is an 89-year-old male who presented to [facility] on 01/11/17 for evaluation of altered mental status, delirium, combativeness and oxygen saturations in the mid 80s on 3 L of oxygen via nasal cannula. Past medical history is significant for advanced dementia, recurrent falls, UTIs, BPH s/p TURP last month, CAD, CHF, HTN and atrial fibrillation. Seen and assessed today in room 1418. Patient is more lethargic today than yesterday. He arouses only briefly to loud verbal stimuli/vigorous tactile stimuli. He does not respond to questions, does not follow commands. Symptoms of anxiety and agitation have decreased in the past 24 hours since patient has become less responsive. He remains on low-dose scheduled Seroquel and PRN Ativan, acquiring 1 PRN dose of Ativan in the past 24 hours. following. Patient was diagnosed with UTI but cultures have been negative 2 days. Blood cultures are negative. Afebrile. WBC normal. Prophylactic antibiotics have been discontinued. Heart rate and rhythm are regular. Heart rate ranges from 61-136. Patient remains on Cardizem secondary to atrial fibrillation. He is not on an anticoagulant due to his frequent falls. Chest x-ray 01/15/17 shows marked enlargement of the cardiac/pericardial silhouette, bilateral pleural effusions and basilar airspace disease which is relatively similar to previous imaging. Patient's upper extremities have become edematous, now weeping. Respirations are increasingly labored. Breath sounds are diminished with scattered rhonchi. Patient is now on Venturi mask, FiO2 40%. Family/friend interactions Spoke to patient's friend and health care surrogate, Heather Tom, who is in [place] for the next shoe weeks. We discussed the patient's overall clinical condition and his noted decline in the past 24 hours. i.e increased respiratory distress, edema with weeping and bilateral upper extremities, changes in mental statuslethargy, inability to pass swallow evaluation-remains nothing by mouth. The patient's health care surrogate is now requesting a hospice consult. She would like to honor the patient's detailed documented wishes in his written advanced directives and transition to comfort focus care/ hospice for symptom management and end-of-life care. is supportive of this decision. . (Radha Bai) Advance Directives Living Will: Copy in medical record Health Care Surrogate: Copy in medical record Durable Power of Rack Room Worker: Copy in medical record (Radha Bai) Advance Directive Specifics Date completed: July 26, 2005 . Health Care Surrogate(s): Heather Reyescristobaleliud is the designated health care surrogate. Elvis Villarreal is designated as the alternate health care surrogate. . Documented care wishes: Living will was completed on July 26, 2005. Patient states that he is qualified to be certified for hospice care, he wishes to be certified for hospice care and to receive palliative care and management of his illness. He does not want his life to be prolonged if he has an incurable/irreversible condition, if he is in a vegetative state, is the medical risks and physical burdens of treatment outweigh the expected medical benefits. In those circumstances the patient does not want artificial nutrition or artificial hydration. If the patient were to have an incurable/irreversible condition that would result in his within a relatively short period of time, he does not want pharmacological treatments for measures to be administered to him if he is diagnosed with pneumonia (or a similar condition) as a secondary condition. . Significant change in goals: Hospice has been consulted. . (Radha Bai) Objective Vital Signs Date Time Temp Pulse Resp B/P Pulse Ox O2 Delivery O2 Flow Rate FiO2 01/15/17 08:47 100 Venturi Mask 6.00 40 01/15/17 08:00 89 01/15/17 08:00 97.9 99 20 122/57 97 01/15/17 04:00 98.7 61 18 125/77 97 01/15/17 02:23 97 98 01/15/17 00:22 97 Venturi Mask 6.00 50 01/15/17 00:00 97.2 136 18 137/87 97 01/14/17 20:00 119 01/14/17 20:00 97.3 104 18 138/85 95 01/14/17 16:05 96.9 108 18 146/86 95 Intake & Output 01/15/17 01/15/17 07:00 19:00 Intake Total 0 ml Output Total 1000 ml Balance -1000 ml Intake Oral 0 ml Output Urine Total 1000 ml # Voids 0 # Bowel Movements 1 . Physical Exam CONSTITUTIONAL/GENERAL: This is a frail, malnourished elderly male patient lethargic and in moderate amount of respiratory distress. TUBES/LINES/DRAINS: PIVx1, soft restraints BUE. SKIN: Tegaderm 2/2 skin tears on hands bilaterally. Ecchymoses on upper extremities.. Skin temperature appropriate. Not diaphoretic. Bilateral upper extremities are edematous and weeping. HEAD: Atraumatic. Normocephalic. EYES: PERRLA. ENT: [place]. Nose without bleeding or purulent drainage. NECK: Trachea midline. Supple, nontender. No palpable thyroid enlargement or nodularity. CARDIOVASCULAR: Heart rate and rhythm are regular. BUE edematous, weeping. RESPIRATORY/CHEST: FiO2 40% on Venturi mask. Diminished air exchange, scattered rhonchi. GASTROINTESTINAL: Abdomen soft, non-tender, nondistended. Remains nothing by mouth GENITOURINARY: Without palpable bladder distension. MUSCULOSKELETAL: Extremities without clubbing, cyanosis, or edema. LYMPHATICS: No palpable cervical or supraclavicular adenopathy. NEUROLOGICAL: Patient increasing lethargic today. Responds briefly to loud verbal stimuli/vigorous tactile stimuli. Does not respond to questions, does not follow commands. PSYCHIATRIC: Unable to be assessed secondary to patient's clinical condition . . (Radha Bai) Diagnostic Tests Laboratory Laboratory Tests Test 01/14/17 05:45 White Blood Count 8.4 TH/MM3 (4.0-11.0) Red Blood Count 4.77 MIL/MM3 (4.50-5.90) Hemoglobin 13.3 GM/DL (13.0-17.0) Hematocrit 40.2 % (39.0-51.0) Mean Corpuscular Volume 84.1 FL (80.0-100.0) Mean Corpuscular Hemoglobin 27.8 PG (27.0-34.0) Mean Corpuscular Hemoglobin 33.1 % Concent (32.0-36.0) Red Cell Distribution Width 15.1 % (11.6-17.2) Platelet Count 166 TH/MM3 (150-450) Mean Platelet Volume 8.6 FL (7.0-11.0) Sodium Level 146 MEQ/L (136-145) Potassium Level 3.6 MEQ/L (3.5-5.1) Chloride Level 108 MEQ/L (98-107) Carbon Dioxide Level 29.5 MEQ/L (21.0-32.0) Anion Gap 9 MEQ/L (5-15) Blood Urea Nitrogen 17 MG/DL (7-18) Creatinine 0.71 MG/DL (0.60-1.30) Estimat Glomerular Filtration 104 ML/MIN Rate (>89) Random Glucose 74 MG/DL (74-106) Calcium Level 8.3 MG/DL (8.5-10.1) Magnesium Level 2.1 MG/DL (1.5-2.5) . (Radha Bai) Result Diagram: 01/14/17 0545 01/14/17 0545 Imaging Last 72 hours Impressions Chest X-Ray 01/15/17 0000 Signed Impressions: Service Date/Time: Sunday, January 15, 2017 06:26 - CONCLUSION: No significant change has occurred. Michel Mixon MD Chest X-Ray 01/13/17 2030 Signed Impressions: Service Date/Time: Friday, January 13, 2017 20:53 - CONCLUSION: 1. Bibasilar densities and small pleural effusions. 2. Cardiomegaly with increased pulmonary vascularity, likely CHF. Alexx Mcnair MD . (Radha Bai) Assessment and Plan Disease Oriented Problem List: (1) Dementia (2) BPH (benign prostatic hyperplasia) (3) Atrial fibrillation (4) Dementia with behavioral disturbance (5) Hypertension (6) UTI (urinary tract infection) Comment: Patient diagnosed with UTI per urinalysis. However, cultures remain negative. Antibiotics were discontinued for the time being. . Symptom Scale: (1) Agitation Comment: Patient is currently on low-dose scheduled Seroquel and PRN lorazepam. Psychiatry was consultedno further recommendations were made. . (2) Confusion 0-10 Scale: Unable to quantify Pertinent Non-Medical Issues Psychosocial: Pending family meeting. Spiritual: Religion wilmer Legal: Health care surrogate designation form completed and available in EMR. Ethical issues impacting care: No known ethical issues impacting care at this time. . Important Contacts Heather Temple, Surrogate/POA: [phone] Shaun Villarreal, alternate [facility]: [phone] . . Prognosis Patient is an 89-year-old male who has been hospitalized 3 times since August. He has multiple comorbid conditions for which he is reportedly noncompliant. The patient was transferred to a [facility] [place] [facility] [place] because it was no longer safe for him to live alone. Patient has progressive end-stage dementia with behaviors; FAST 7D-7E. He has been unable to pass repeated swallowing evaluations and remains NPO. Written advanced directives are in place, completed 07/26/2005. Per the patient' s living will, in the event he has an end-stage condition he does not want artificial nutrition/hydration or or any other procedures/medications that would only serve to prolong the process of dying. He instead requests to be kept comfortable stating he is appropriate for hospice services - he would request hospice services for symptom management and end-of-life care. Overall prognosis is poor. Code Status: No Code Plan * NO CODE/DNR * Decision-making: Patient is not capacitated to participate and clarification of medical treatment goals. It is unknown if the patient will regain capacity. Baseline unknown. However, the patient has advanced dementia which is an indicator that the patient will likely not regain this capacity. Heather Temple is the designated health care surrogate/POA. Shaun Villarreal is designated as the alternate health care surrogate. * Goals: Transition to comfort focus care/hospice for symptom management and end -of-life care. * [facility]/Heather Lopez is traveling to [place] and will remain out of state for the next 12 weeks. She can be reached at phone# [phone]. * Symptom managementagitation: Decreased agitation likely secondary to lethargy. Patient is currently on low-dose Seroquel and PRN Lorazepam; required 1 dose of PRN Ativan in the past 24 hours. Psychiatry following. * Hospice consult placed. Discussed with patient's nurse, case management and hospice intake. * Spoke to patient's friend and health care surrogate, Heather Vaishali, who is in [place] for the next 2 weeks. We discussed the patient's overall clinical condition and his noted decline in the past 24 hours. i.e increased respiratory distress, edema with weeping and bilateral upper extremities, changes in mental statuslethargy, inability to pass swallow evaluation-remains nothing by mouth. The patient's health care surrogate is now requesting a hospice consult. She would like to honor the patient's detailed documented wishes in his written advanced directives and transition to comfort focus care/ hospice for symptom management and end-of-life care. is supportive of this decision. . . (Radha Bai) Attestation To help prompt me to consider important information that might be impacting today's encounter and assessment, information from prior notes written by myself or my colleagues may have been "brought forward" into today's note. My signature on this note, however, is an attestation that I personally performed the exam, history, and/or decision-making noted today, and, unless otherwise indicated, the interactions with patient, family, and staff as well as the review of records all occurred today. I also attest that the listed assessment and stated plan reflect my best clinical judgment today based on the combination of historical information, prior notes, and today's exam/ interactions. When time spent is documented, it refers only to time spent today by the signer, or if indicated, combined time spent today by collaborating physician/nurse practitioner. . (Radha Bai) Collaborating MD Comments Chart reviewed. Cased discussed with palliative care STRAP SEWER. Above STRAP SEWER note reviewed and I concur. . (Jorge Johnson MD) Radha Bai Jan 15, 2017 12:49 Jorge Johnson MD March 25, 2017 14:27
[2017-01-15] MEDS ORDERED: DEXT 5%-NACL 0.9% 1000 ML INJ 1,000 ML IV SCH (16:00)
--- NOTE | 2017-01-15 16:32 | HHI.DS ---
Discharge Summary Admission Date Jan 11, 2017 at 06:21 Discharge Date: Jan 15, 2017 Admitting Diagnosis altered mental status, sepsis, UTI, atrial fibrillation (1) Dementia with behavioral disturbance ICD Code: F03.91 Diagnosis: Principal (2) Urethral trauma ICD Code: S37.30XA Diagnosis: Secondary (3) Abnormal urinalysis ICD Code: R82.90 Diagnosis: Secondary (4) Atrial fibrillation ICD Code: I48.91 Diagnosis: Secondary Procedures No procedures performed. Brief History - From Admission Most of the history obtained from EMR and healthcare surrogate at bedside. The patient is an 89-year-old male who resides at a halfway. He was brought into the hospital for increasing agitation and aggression toward staff. He does have advanced dementia. He was seen in the ER here about 4 days ago for agitation and falls. He was diagnosed with a UTI but his urine culture is negative. Apparently the patient continued to be aggressive at the halfway with prompted the emergency room visit. In the background, he has been stable from medical standpoint. He had a TURP for BPH last month and has been doing very well from a urologic standpoint. A Claros was inserted when he presented to the emergency room overnight. He is currently still very agitated , trashing about in the bed. He is having some hematuria but appear to be clearing up presumably from a traumatic Claros. CBC/BMP: 01/14/17 0545 01/14/17 0545 Significant Findings Laboratory Tests Test 01/14/17 05:45 Sodium Level 146 MEQ/L (136-145) Chloride Level 108 MEQ/L (98-107) Calcium Level 8.3 MG/DL (8.5-10.1) Imaging Last Impressions Chest X-Ray 01/15/17 0000 Signed Impressions: Service Date/Time: Sunday, January 15, 2017 06:26 - CONCLUSION: No significant change has occurred. Michel Mixon MD Head CT 01/11/17 0425 Signed Impressions: Service Date/Time: Wednesday, January 11, 2017 05:05 - CONCLUSION: No acute findings. Improved maxillary and ethmoid sinus disease from January 06. Atul Esparza MD PE at Discharge GENERAL: Elderly male, very agitated and trashing in the bed. SKIN: Bilateral forearm with superficial lacerations. HEAD: Atraumatic. Normocephalic. EYES: Pupils equal round and reactive. ENT: Nose drainage. Airway patent. NECK: Trachea midline. No JVD or lymphadenopathy. Supple, nontender, no meningeal signs. CARDIOVASCULAR: Irregular rate and rhythm, tachycardia. RESPIRATORY: Clear to auscultation. Breath sounds equal bilaterally. No wheezes , rales, or rhonchi. GASTROINTESTINAL: Abdomen soft, nondistended. No guarding. MUSCULOSKELETAL: Extremities without clubbing, cyanosis, or edema. NEUROLOGICAL: Lethargic. Hospital Course This is a pleasant 89 y/o Male who resides in a senior care was brought in to ER with agitation and aggressive he has Advanced Dementia, he has Recurrent falls, diagnosed with UTI but his Urine culture is negative, has recent TURP for BPH last Month, Claros cath inserted in ER, has Atrial Fibrillation, CHF b history, CAD, Hypertension. Severe Dementia Patient seen in the room with nurse Miss Aguilera also present GABI Miss Romero from Palliative care, the patient remains Lethargic, not following commands. he is NPO and has Living Will the patient does not want artificial nutrition or artificial hydration. his IV fluids were removed, after sustained a conversation between BENDER HELPER Miss Romero and his Health Surrogate Heather Temple she accepted for Hospice will go for Hospice care when she is able to sign documents Assessment and Plan 1. Acute encephalopathy: Probable Dementia with behavioral disturbances. Suspect progression of his disease with worsening behavioral symptoms. Patient had an abnormal urinalysis but his urine cultures negative. -Psychiatry is consulted to help with behavioral symptoms. Appreciate palliative care following. 2. Abnormal urinalysis and elevated lactic acid: Patient started on Zosyn and vancomycin on admission. So far all cultures are negative. There are no other signs or symptoms of an infectious process, following off antibiotics. 3. Hematuria probably secondary to traumatic Claros. removed Claros and improved. 4. Atrial fibrillation: Continue Cardizem. Continue home medications for his chronic conditions as indicated. Speech therapy for Swallow eval has Strict NPO, GI prophylaxis: Stool softener PRN constipation. DVT PPx: Lovenox Patient is going for Hospice as soon as signed documents by Health surrogate Code status DNR. Discharge Planning Patient actively dying, Poor short term prognosis, will go to Hospice as soon as signed documents by Health Care Surrogate. Pt Condition on Discharge: Deteriorating Discharge Disposition: Hospice/Med Facility Discharge Time: <= 30 minutes Discharge Instructions DIET: Follow Instructions for: Nothing By Mouth Additional Diet Instructions: I Activities you can perform: See Additionl Instruction Other Activity Instructions: Bed Rest Sylvester Yañez MD Jan 15, 2017 16:32
[2017-01-15] MEDS: traZODone HCL 50 MG TAB PO SCH (20:06)
[2017-01-15] MEDS: TAMSULOSIN HCL 0.4 MG CAP PO SCH (20:07)
== END 2017-01-15 20:40 | disposition hospice, inpatient (51) | DRG 884 ==
LOC: NEPE 04:16 → NEDA 06:21 → N04B 09:38
PROVIDERS: ADMIT Internal Medicine; ATTEND Internal Medicine
DX: F03.91 Unspecified dementia, unspecified severity, with behavioral disturbance (principal); I50.9 Heart failure, unspecified; S37.30XA Unspecified injury of urethra, initial encounter; Y84.6 Urinary catheterization as the cause of abnormal reaction of the patient, or of later complication, without mention of misadventure at the time of the procedure; Y92.238 Other place in hospital as the place of occurrence of the external cause; E46 Unspecified protein-calorie malnutrition; Z68.20 Body mass index [BMI] 20.0-20.9, adult; I48.91 Unspecified atrial fibrillation; I10 Essential (primary) hypertension; H91.90 Unspecified hearing loss, unspecified ear; Z78.1 Physical restraint status; I25.10 Atherosclerotic heart disease of native coronary artery without angina pectoris; N40.0 Benign prostatic hyperplasia without lower urinary tract symptoms; R29.6 Repeated falls; Z66 Do not resuscitate; Z51.5 Encounter for palliative care; I51.7 Cardiomegaly; M48.56XD Collapsed vertebra, not elsewhere classified, lumbar region, subsequent encounter for fracture with routine healing; S51.812A Laceration without foreign body of left forearm, initial encounter; S51.811A Laceration without foreign body of right forearm, initial encounter; X58.XXXA Exposure to other specified factors, initial encounter
CPT/HCPCS: 70450; 71010; 80048; 80053; 80202; 81001; 82140; 82550; 82948; 83605; 83735; 84443; 84484; 85025; 85027; 85610; 87040; 87086; 93005; 96365; 96375; J1630; J1650; J1940; J2060; J2543; J3370; J3480; J7030; J7040; J7050